=== PATIENT | male | born 1935 | race Caucasian/White ===

== ENCOUNTER 2018-01-11 11:35 | Inpatient (IN) | payer MEDICARE, MEDICAID ==
--- NOTE | 2018-01-11 11:41 | ED PDOC ---
Arrival/HPI - General Historian: Patient, EMS - Critical Care Critical Care Minutes: 30 minutes - History of Present Illness Time/Duration: Prior to Arrival - General Time Seen by Provider: 01/11/18 11:38 - Critical Care Narrative Critical Care (Text): 01/11/18 12:07 pt was found to be in SVT @150 on ekg; dr. tyson at bedside. pt placed on monitor. adenosine given IVP. HR improved. EKG repeated; NSR at 79b/m no st elevations reviewed with prior EKG on 07/20/15. (Lu Rosario) - History of Present Illness Narrative History of Present Illness (Text): 01/11/18 11:38 82yr old male presents today with AMS. Per EMS, pt was standing outside his house and appeared to be altered. pt denies cp or sob. denies abdominal pain. denies urinary symptoms. pt denies fevers. pt denies trauma or injury. pt denies any complaints. (Lu Rosario) Past Medical History - Provider Review Nursing Documentation Reviewed: Yes - Travel History Have you recently traveled outside [place] w/in the past 3 mons?: No - Tetanus Immunization Tetanus Immunization: Unknown - Psychiatric Hx Substance Use: No Family/Social History - Physician Review Nursing Documentation Reviewed: Yes Family/Social History: Unknown Family HX Smoking Status: Never Smoked Hx Alcohol Use: No Hx Substance Use: No Allergies/Home Meds Allergies/Adverse Reactions: Allergies No Known Allergies Allergy (Verified 07/20/15 08:41) Home Medications: Home Meds Medication Instructions Recorded Confirmed Unobtainable 07/20/15 01/11/18 Review of Systems - Review of Systems Constitutional: absent: Fatigue, Fevers Respiratory: absent: SOB, Cough Cardiovascular: absent: Chest Pain, Palpitations Gastrointestinal: absent: Vomiting Genitourinary Male: absent: Dysuria, Frequency Musculoskeletal: absent: Arthralgias, Back Pain Skin: absent: Rash, Pruritis Neurological: absent: Headache, Dizziness Psychiatric: absent: Anxiety, Depression, Suicidal Ideation Physical Exam Vital Signs Reviewed: Yes Temperature: Afebrile Blood Pressure: Normal Pulse: Tachycardic Respiratory Rate: Normal Appearance: Positive for: Well-Appearing, Non-Toxic, Comfortable Pain Distress: None Mental Status: Positive for: other (alert and oriented x 2 (person and place)) - Systems Exam Head: Present: Atraumatic Pupils: Present: PERRL Extroacular Muscles: Present: EOMI Mouth: Present: Moist Mucous Membranes Neck: Present: Normal Range of Motion Respiratory/Chest: Present: Clear to Auscultation Cardiovascular: Present: Peripheal Pulses Present, Tachycardic. No: Murmurs, Rub, Gallop, Muffled Abdomen: No: Tenderness, Distention, Rebound, Guarding Back: Present: Normal Inspection Upper Extremity: Present: Normal ROM Lower Extremity: Present: Normal ROM Skin: Present: Warm, Dry, Normal Color Psychiatric: Present: Alert Vital Signs Temp Pulse Resp BP Pulse Ox 01/11/18 15:10 64 22 157/90 H 100 01/11/18 13:28 64 25 H 91/30 L 96 01/11/18 12:28 74 16 118/80 100 01/11/18 11:38 98.6 F 82 18 112/56 L 98 Medical Decision Making Reassessment Condition: Re-examined, Improved ED Course and Treatment: 01/11/18 11:42 82-year-old male presents with altered mental status alert and oriented 2 no signs of trauma or injury. EKG: SVT at 149 b/m normal axis. dr. tyson called to bedside for SVT. 6mg of adenosine given IVP for SVT. repeat EKG NSR at 79b/m no st elevations reviewed with prior EKG on 07/20/15. pt reassessment; non toxic; no distress. Chest x-ray: no active disease; read by the radiologist. CBC: wnl CMP: wnl trop; 0.[address]: FINDINGS: HEMORRHAGE: No intracranial hemorrhage. BRAIN: No mass effect or edema. Mild atrophy. No acute findings VENTRICLES: Unremarkable. No hydrocephalus. CALVARIUM: Unremarkable. PARANASAL SINUSES: Unremarkable as visualized. No significant inflammatory changes. MASTOID AIR CELLS: Unremarkable as visualized. No inflammatory changes. OTHER FINDINGS: None. IMPRESSION: No acute findings 01/11/18 13:06 pt reassessment; pt non toxic well appearing; no distress. resting comfortably. case discussed with dr. tamayo; accepts admission impression; SVT, AMS admit to tele. (Lu Rosario) 01/11/18 11: 82 male presents with AMS and found to be in SVT at 150's. I went immediately to bedside when informed by nurse. Gave patient Adenosine 6mg IV and HR improved to 50s and then stabilized at (Brian Tyson) - Lab Interpretations Lab Results: 01/11/18 12:00 01/11/18 12:00 Lab Results 01/11/18 12:00: WBC 8.3, RBC 4.41, Hgb 13.8 L, Hct 41.1 L, MCV 93.2, MCH 31.3, MCHC 33.6, RDW 13.3, Plt Count 372, MPV 9.3, Gran % 82.1 H, Lymph % (Auto) 11.5 L, [place] % (Auto) 6.2 H, Eos % (Auto) 0.1 L, Baso % (Auto) 0.1, Gran # 6.79 H, Lymph # (Auto) 1.0 L, [place] # (Auto) 0.5, Eos # (Auto) 0.0, Baso # (Auto) 0.01 01/11/18 12:00: Sodium 144, Potassium 4.7, Chloride 106, Carbon Dioxide 25, Anion Gap 17, BUN 13, Creatinine 1.3, Est GFR ( Amer) > 60, Est GFR (Non- Af Amer) 53, Random Glucose 118 H, Calcium 9.0, Total Bilirubin 0.8, AST 23, ALT 22, Alkaline Phosphatase 89, Lactate Dehydrogenase 464, Total Creatine Kinase 102, Troponin I 0.02 D, Total Protein 6.8, Albumin 4.1, Globulin 2.7, Albumin/Globulin Ratio 1.5 - RAD Interpretation Radiology Orders: 01/11/18 11:53 HEAD W/O CONTRAST [CT] Stat CHEST PORTABLE [RAD] Stat - Medication Orders Current Medication Orders: Amlodipine Besylate (Norvasc) 5 mg PO DAILY GARCÍA Enoxaparin Sodium (Lovenox) 40 mg SC DAILY GARCÍA PRN Reason: Protocol Metoprolol Tartrate (Lopressor) 25 mg PO BRKDIN GARCÍA Pantoprazole Sodium (Protonix Ec Tab) 40 mg PO 0600 GARCÍA Discontinued Medications Adenosine (Adenosine 6 Mg/2 Ml Inj) 6 mg IVP STAT STA Stop: 01/11/18 11:52 Last Admin: 01/11/18 12:07 Dose: 6 mg IVP Administration Document 01/11/18 12:07 MR (Rec: 01/11/18 12:07 MR [id number]) Charges for Administration # of IVP Administrations 1 Aspirin (Aspirin) 325 mg PO STAT STA Stop: 01/11/18 13:06 Last Admin: 01/11/18 15:23 Dose: 325 mg Metoprolol Tartrate (Lopressor) 25 mg PO BRKDIN GARCÍA Disposition/Present on Arrival - Present on Arrival Any Indicators Present on Arrival: No History of DVT/PE: No History of Uncontrolled Diabetes: No Urinary Catheter: No History Surgical Site Infection Following: None - Disposition Have Diagnosis and Disposition been Completed?: Yes Disposition Time: 13:05 Patient Plan: Observation - Disposition Diagnosis: SVT (supraventricular tachycardia), Altered mental status Disposition: HOSPITALIZED Patient Problems: Current Active Problems Problem Status Onset Altered mental status Acute SVT (supraventricular tachycardia) Acute Condition: FAIR
[2018-01-11 12:20] LABS: BASO # 0.01 K/mm3 (0.0-2.0); BASO % 0.1 % (0.0-3.0); EOS % 0.1 % (1.5-5.0); GRAN # 6.79 (1.4-6.5); GRAN % 82.1 % (50.0-68.0); HEMOGLOBIN 13.8 g/dL (14.0-18.0); LYMPH % 11.5 % (22.0-35.0); MEAN CELL VOLUME 93.2 fl (80.0-105.0); MEAN CORPUSCULAR HEMOGLOBIN 31.3 pg (25.0-35.0); MEAN CORPUSCULAR HGB CONC 33.6 g/dl (31.0-37.0); MEAN PLATELET VOLUME 9.3 fl (7.0-11.0); MONO # 0.5 (0.1-0.6); MONO % 6.2 % (1.0-6.0); RBC 4.41 10^6/uL (3.5-6.1); RED CELL DISTRIBUTION WIDTH 13.3 % (11.5-14.5); WHITE BLOOD COUNT 8.3 10^3/ul (4.5-11.0)
[2018-01-11 12:27] LABS: ALB/GLOB RATIO 1.5 (1.1-1.8); ALBUMIN 4.1 g/dL (3.0-4.8); ALT/SGPT 22 U/L (7-56); AST/SGOT 23 U/L (17-59); BLOOD UREA NITROGEN 13 mg/dL (7-21); GFR AFRICAN-AMERICAN > 60; GFR NON-AFRICAN AMERICAN 53
--- NOTE | 2018-01-11 12:32 | RAD ---
Date of service: 01/11/2018 HISTORY: chest pain COMPARISON: 07/20/2015 FINDINGS: LUNGS: No active pulmonary disease. PLEURA: No significant pleural effusion identified, no pneumothorax apparent. CARDIOVASCULAR: Normal. OSSEOUS STRUCTURES: No significant abnormalities. VISUALIZED UPPER ABDOMEN: Normal. OTHER FINDINGS: None. IMPRESSION: No active disease.
[2018-01-11 12:39] LABS: TROPONIN I 0.02 ng/mL
--- NOTE | 2018-01-11 12:40 | CT ---
Date of service: 01/11/2018 PROCEDURE: CT HEAD WITHOUT CONTRAST. HISTORY: AMS COMPARISON: 07/20/2015 TECHNIQUE: Axial computed tomography images were obtained through the head/brain without intravenous contrast. Radiation dose: Total exam DLP = 928 mGy-cm. This CT exam was performed using one or more of the following dose reduction techniques: Automated exposure control, adjustment of the mA and/or kV according to patient size, and/or use of iterative reconstruction technique. FINDINGS: HEMORRHAGE: No intracranial hemorrhage. BRAIN: No mass effect or edema. Mild atrophy. No acute findings VENTRICLES: Unremarkable. No hydrocephalus. CALVARIUM: Unremarkable. PARANASAL SINUSES: Unremarkable as visualized. No significant inflammatory changes. MASTOID AIR CELLS: Unremarkable as visualized. No inflammatory changes. OTHER FINDINGS: None. IMPRESSION: No acute findings
--- NOTE | 2018-01-11 14:52 | CP.PCM.HP ---
<Nelda Sorensen - Last Filed: 01/11/18 18:55> History of Present Illness - History of Present Illness History of Present Illness: Nelda Sorensen D.O. PGY1 - Medicine History and Physical Report Patient is a 82 year old [place]oan male with unknown past medical history and no out-patient follow-up who was found in front of his apartment building, said to be confused and unable to walk. Per patient, he woke up feeling "sick" and described this as feeling generally "not well everywhere." Patient reports that he attempted to walk to a restaurant for food but could not walk more than 3 steps without feeling too weak, and would have to sit down. Patient reports that he is usually able to walk 2 miles at a time, and usually does not have any problems. Patient says this same episode happened before 30 years ago. ROS is otherwise unremarkable for numbness or tingling in lower extremities, lower extremity edema, abdominal pain, denies shortness of breath, chest pain, palpitations, nausea, vomiting, and/or dizziness. Patient reports that he lives at home alone, and that his sister comes to visit him once a week on Sundays. Patient agreed to notify his next-of-kin, and his sister was called for additional history. Sister says he is very independent and says that he walks all the time. She says he is able to walk to faith from the bus stop, which is 1-2 miles away. She says she spoke to him this past Sunday, seemed very calm, which is unusual for his personality because he is usually very excited to talk to her. Per sister, they were disconnected for a long time, but now she is happy that he has a place of his own. Per sister, he is a former alcoholic about 45 years ago. Past medical history: Patient denies Surgical history: Unknown Allergies: Patient denies Home medications: Patient denies Family history: Both parents are . Patient says his father had a heart attack at age 58 survived, but past away soon after. Mother lived until she was 91, and was in good health until she had a fall. Social history: - Living: patient says he has 5 sisters. Only 1 sister is taking care of him and helps him financially. - Tobacco: patient rolls his own tobacco and has smoked for 20 years - ETOH: patient denies - Occupation: unemployed PMD: none Present on Admission - Present on Admission Any Indicators Present on Admission: No History of DVT/PE: No History of Uncontrolled Diabetes: No Urinary Catheter: No Decubitus Ulcer Present: No Review of Systems - Review of Systems All systems: reviewed and no additional remarkable complaints except - Constitutional Constitutional: As Per HPI - EENT Eyes: As Per HPI Ears: As Per HPI Nose/Mouth/Throat: As Per HPI - Cardiovascular Cardiovascular: As Per HPI - Respiratory Respiratory: As Per HPI - Gastrointestinal Gastrointestinal: As Per HPI - Genitourinary Genitourinary: absent: Change in Urinary Stream, Difficulty Urinating, Dysuria, Flank Pain, Hematuria, Pyuria, Urinary Incontinence, Urinary Frequency, Urinary Hesitance, Urinary Urgency - Musculoskeletal Musculoskeletal: As Per HPI - Integumentary Integumentary: As Per HPI - Neurological Neurological: As Per HPI - Psychiatric Psychiatric: As Per HPI - Endocrine Endocrine: As Per HPI - Hematologic/Lymphatic Hematologic: As Per HPI Past Patient History - Tetanus Immunizations Tetanus Immunization: Unknown - Past Social History Smoking Status: Heavy Smoker > 10 Cigarettes Daily (rolls own tobacco with dried quijano > 20 years) Chewing Tobacco Use: No Cigar Use: No Occupation: unemployeed Alcohol: Other (history of heavy alcohol consumption) Home Situation {Lives}: Alone - CARDIAC Hx Cardia Arrhythmia: Yes (30 years ago ) - PULMONARY Hx Respiratory Disorders: No - NEUROLOGICAL Hx Neurological Disorder: No - HEENT Hx HEENT Problems: No - RENAL Hx Chronic Kidney Disease: No - ENDOCRINE/METABOLIC Hx Endocrine Disorders: No - HEMATOLOGICAL/ONCOLOGICAL Hx Blood Disorders: No - INTEGUMENTARY Hx Dermatological Problems: No - MUSCULOSKELETAL/RHEUMATOLOGICAL Hx Musculoskeletal Disorders: No - GASTROINTESTINAL Hx Gastrointestinal Disorders: No - GENITOURINARY/GYNECOLOGICAL Hx Genitourinary Disorders: No - PSYCHIATRIC Hx Psychophysiologic Disorder: No Hx Substance Use: No - SURGICAL HISTORY Hx Surgeries: No Meds Allergies/Adverse Reactions: Allergies Allergy/AdvReac Type Severity Reaction Status Date / Time No Known Allergies Allergy Verified 07/20/15 08:41 Physical Exam - Constitutional Appears: Well, Non-toxic, No Acute Distress, Confused (Alert and oriented to name and city only ) - Head Exam Head Exam: ATRAUMATIC, NORMOCEPHALIC - Eye Exam Eye Exam: Normal appearance, PERRL. absent: Conjunctival injection Pupil Exam: NORMAL ACCOMODATION - ENT Exam ENT Exam: Mucous Membranes Moist, Normal Exam - Neck Exam Neck exam: Positive for: Normal Inspection. Negative for: Lymphadenopathy, Tenderness - Respiratory Exam Respiratory Exam: Clear to Auscultation Bilateral, NORMAL BREATHING PATTERN. absent: Accessory Muscle Use, Chest Wall Tenderness, Decreased Breath Sounds, Prolonged Expiratory Phase, Rales, Wheezes, Stridor - Cardiovascular Exam Cardiovascular Exam: REGULAR RHYTHM (79 beats per minute ). absent: Bradycardia , Tachycardia, Clicks, Diastolic murmur, Gallop, Irregular Rhythm, JVD, Rubs - GI/Abdominal Exam GI & Abdominal Exam: Normal Bowel Sounds, Soft. absent: Tenderness - Extremities Exam Extremities exam: Positive for: full ROM, normal inspection. Negative for: pedal edema - Back Exam Back exam: FULL ROM, NORMAL INSPECTION. absent: muscle spasm, paraspinal tenderness, rash noted - Neurological Exam Neurological exam: Alert, CN II-XII Intact, Normal Gait, Reflexes Normal Additional comments: muscle strength in lower extremities 5/5 bilaterally - Psychiatric Exam Psychiatric exam: Normal Affect, Normal Mood - Skin Skin Exam: Dry, Intact, Normal Color, Warm Results - Vital Signs Recent Vital Signs: Last Vital Signs Temp 98.6 F 01/11/18 11:38 Pulse 82 01/11/18 11:38 Resp 18 01/11/18 11:38 BP 112/56 L 01/11/18 11:38 Pulse Ox 98 01/11/18 11:38 - Labs Result Diagrams: 01/11/18 12:00 01/11/18 12:00 Assessment & Plan - Assessment and Plan (Free Text) Assessment: This is an 82 year old male with unknown past medical history who was found in front of his apartment building confused, unable to walk, and was brought in by emergency medical services to [facility]. Patient was found to have SVT on EKG performed in ED with heart rate of >140bmp. This was resolved with 1 dose Adenosine IVP, aspirin 325mg and patient was subsequently admitted for further evaluation for paroxysmal SVT and cardiac workup. SVT, paroxysmal - Repeat EKG 01/11: NSR 79 bpm - Repeat EKG ordered for 01/12 AM - Patient admitted to telemetry - Cardiology consulted, will follow recommendations - Blood cultures pending - Urine Culture - Troponin I: 0.02. Serial troponins pending - Echo pending - CXR: showed no active disease, per report - CT head: showed no hydrocephalus, no intracranial hemorrhage, per report - Monitor vitals - Start on healthy heart diet Anemia - Hemoglobin 13.8, will monitor - Monitor with CBC series PPx: DVT, GI - Lovenox 40mg SC Daily GARCÍA - Protonix 40mg PO 0600 GARCÍA Patient was seen and case was discussed in detail with Attending Physician MD Nelda Morris D.O. PGY-1 Decision To Admit - Pt Status Changed To: Hospital Disposition Of: Inpatient Admission - Admit Certification Admit to Inpatient:: After my assessment, the patient will require hospitalization for at least two midnights. This is because of the severity of symptoms shown, intensity of services needed, and/or the medical risk in this patient being treated as an outpatient. - . Bed Request Type: Telemetry <Eloisa Mckeon - Last Filed: 01/13/18 13:36> Results - Vital Signs Recent Vital Signs: Last Vital Signs Temp 99.4 F 01/13/18 12:00 Pulse 56 L 01/13/18 12:00 Resp 18 01/13/18 12:00 BP 150/59 L 01/13/18 12:00 Pulse Ox 97 01/13/18 06:00 - Labs Result Diagrams: 01/13/18 06:00 01/13/18 06:00 Labs: Laboratory Results - last 24 hr 01/12/18 01/12/18 01/13/18 06:20 10:50 06:00 WBC 6.4 RBC 3.74 Hgb 11.5 L Hct 34.4 L MCV 92.0 MCH 30.7 MCHC 33.4 RDW 13.0 Plt Count 309 MPV 9.4 Gran % 76.0 H Lymph % (Auto) 13.[address] [place] % (Auto) 9.3 H Eos % (Auto) 0.9 L Baso % (Auto) 0.2 Gran # 4.88 Lymph # (Auto) 0.[address] [place] # (Auto) 0.6 Eos # (Auto) 0.1 Baso # (Auto) 0.01 Sodium Potassium Chloride Carbon Dioxide Anion Gap BUN Creatinine Est GFR ( Amer) Est GFR (Non-Af Amer) Random Glucose Hemoglobin A1c 4.5 Calcium Total Bilirubin AST ALT Alkaline Phosphatase Total Protein Albumin Globulin Albumin/Globulin Ratio Vitamin B12 235 L Folate 7.1 01/13/18 06:00 WBC RBC Hgb Hct MCV MCH MCHC RDW Plt Count MPV Gran % Lymph % (Auto) [place] % (Auto) Eos % (Auto) Baso % (Auto) Gran # Lymph # (Auto) [place] # (Auto) Eos # (Auto) Baso # (Auto) Sodium 140 Potassium 4.3 Chloride 106 Carbon Dioxide 26 Anion Gap 12 BUN 15 Creatinine 1.0 Est GFR ( Amer) > 60 Est GFR (Non-Af Amer) > 60 Random Glucose 88 Hemoglobin A1c Calcium 8.6 Total Bilirubin 0.9 AST 21 ALT 32 Alkaline Phosphatase 80 Total Protein 6.2 Albumin 3.6 Globulin 2.6 Albumin/Globulin Ratio 1.4 Vitamin B12 Folate Attending/Attestation - Attestation I have personally seen and examined this patient.: Yes I have fully participated in the care of the patient.: Yes I have reviewed all pertinent clinical information: Yes Notes (Text): 01/13/18 13:33 Attending note; Patient seen and examined with resident in ER. Patient is a 82 year old [place] male with unknown past medical history and no out-patient follow-up who was found in front of his apartment building, said to be confused and unable to walk. The patient was found to be in SVT. Got 1 dose of adenosine ER. Converted to normal sinus rhythm. Patient is alert and awake. Oriented to place. Some long-term memory intact. Poor short-term memory. Moving all extremities. Possible dementia. Admit to telemetry; monitor closely. Cardiac enzymes ordered. Cardiology evaluation requested. Echocardiogram ordered. Started on metoprolol for heart rate control and blood pressure control. Case discussed with patient's sister in detail. Patient is a previous history of alcohol abuse and smoking history. Patient currently lives alone. Unemployed. Patient needs close outpatient follow-up upon discharge.
[2018-01-11 15:32] LABS: PH,URINE 6.5 (4.7-8.0); URINE APPEARANCE SLIGHT-CLOUDY (CLEAR); URINE BILIRUBIN NEGATIVE (NEGATIVE); URINE BLOOD TRACE-LYSED (NEGATIVE); URINE COLOR YELLOW (YELLOW); URINE GLUCOSE (UA) NEGATIVE (NEGATIVE); URINE LEUKOCYTE ESTERASE NEGATIVE Leu/uL (NEGATIVE); URINE PROTEIN 100 mg/dL (<30 mg/dL); URINE UROBILINOGEN 0.2 E.U./dL (<1 E.U./dL)
[2018-01-11 15:38] LABS: URINE BACTERIA TRACE (NEG); URINE EPITHELIAL CELLS 0 - 2 /hpf (0-5); URINE HYALINE CAST 0 - 2 /hpf; URINE WBC 0 - 2 /hpf (0-6)
--- NOTE | 2018-01-11 17:31 | CARD ---
APPROVED REPORT Date of service: 01/11/2018 EKG Measurement Heart [id number] <Conclusion> Normal sinus rhythm Moderate voltage criteria for LVH, may be normal variant Anterior infarct, age undetermined Abnormal ECG
[2018-01-11 18:16] VITALS: BMI 22.4
[2018-01-11] MEDS ORDERED: Pneumococcal 23-Valent Vaccine IM ONE (18:17)
[2018-01-11 23:56] LABS: BARBITURATES, UR NEGATIVE (NEGATIVE); BENZODIAZEPINES, UR NEGATIVE (NEGATIVE); OPIATES, UR NEGATIVE (NEGATIVE); PHENCYCLIDINE, UR NEGATIVE (NEGATIVE)
[2018-01-12] MEDS: Pantoprazole 40 mg EC Tab PO SCH (06:16)
[2018-01-12 07:05] LABS: BASO # 0.01 K/mm3 (0.0-2.0); BASO % 0.1 % (0.0-3.0); EOS # 0.1 (0.0-0.7); GRAN # 4.82 (1.4-6.5); GRAN % 71.3 % (50.0-68.0); HEMOGLOBIN 11.7 g/dL (14.0-18.0); LYMPH # 1.5 (1.2-3.4); LYMPH % 21.4 % (22.0-35.0); MEAN CELL VOLUME 92.7 fl (80.0-105.0); MEAN CORPUSCULAR HEMOGLOBIN 30.6 pg (25.0-35.0); MEAN CORPUSCULAR HGB CONC 33.1 g/dl (31.0-37.0); MEAN PLATELET VOLUME 9.4 fl (7.0-11.0); MONO # 0.4 (0.1-0.6); MONO % 6.2 % (1.0-6.0); RBC 3.82 10^6/uL (3.5-6.1); RED CELL DISTRIBUTION WIDTH 13.2 % (11.5-14.5); WHITE BLOOD COUNT 6.8 10^3/ul (4.5-11.0)
[2018-01-12 07:18] LABS: ALB/GLOB RATIO 1.5 (1.1-1.8); ALBUMIN 3.8 g/dL (3.0-4.8); ALT/SGPT 21 U/L (7-56); AST/SGOT 24 U/L (17-59); BLOOD UREA NITROGEN 15 mg/dL (7-21); CALCIUM 8.7 mg/dL (8.4-10.5); GFR AFRICAN-AMERICAN > 60; GFR NON-AFRICAN AMERICAN > 60; HDL CHOLESTEROL 35 mg/dL (29-60)
[2018-01-12 07:28] LABS: LDL CHOLESTEROL 72 mg/dL (0-129)
--- NOTE | 2018-01-12 08:13 | CON ---
DATE: 01/12/2018 REQUESTING PHYSICIAN: Dr. Mckeon. REASON FOR CONSULTATION: SVT. HISTORY: This is an 82-year-old man with a somewhat limited history due to altered mental status. He was brought to the Emergency Room by EMS yesterday with some confusion. He was noted to be tachycardic in the Emergency Room. He was found to be in supraventricular tachycardia, was treated with IV adenosine with improvement in his rhythm to sinus rhythm. He is currently on Telemetry and is comfortable. He appears somewhat confused. He knows his name, but is uncertain as to where he is. He apparently was confused and unable to walk yesterday. He has emigrated from [place]. He reportedly lives alone at [facility]. History is somewhat limited. There is no clear history of hypertension. He smokes some form of herbal cigarettes. He has no history of diabetes. There is a family history of premature heart disease. REVIEW OF SYSTEMS: The 10-point review of systems is fairly limited. FAMILY HISTORY: Father of myocardial infarction at the age of 58. Mother lives until 91. PHYSICAL EXAMINATION: GENERAL: He is an elderly man who appears comfortable at rest. VITAL SIGNS: His blood pressure is 166/80 with a pulse of 60, in sinus; respirations are 16. He is afebrile. HEENT: Normocephalic, atraumatic. NECK: Supple. No JVD noted. CHEST: A few scattered rhonchi heard. HEART: PMI displaced laterally with soft systolic murmur present at left sternal border. ABDOMEN: Soft, nontender. Normoactive bowel sounds. EXTREMITIES: No clubbing, cyanosis, edema. SKIN: Warm and dry. PSYCHIATRIC: Somewhat flat affect, apparently was somewhat belligerent through the night. NEUROLOGIC: Oriented to person only. No gross motor or sensory deficit seen. DIAGNOSTIC DATA: White count is 8.3, hemoglobin and hematocrit 13.8 and 41.1 with platelet count of 372,000, potassium 4.7, BUN and creatinine 13 and 1.3, glucose 118. Three sets of cardiac enzymes were negative. BNP is 1230. Toxicology screen was negative. Chest x-ray reveals normal cardiac silhouette with clear lung anderson. Initial electrocardiogram reveals SVT at 150 beats per minute. Followup echocardiogram reveals a sinus rhythm with voltage criteria for LVH, prior anterior myocardial infarction pattern cannot be excluded. IMPRESSION: 1. Paroxysmal supraventricular tachycardia, successfully converted to sinus rhythm with adenosine use. 2. Apparent hypertension. 3. Confusional state, etiology unclear. 4. Abnormal electrocardiogram. RECOMMENDATIONS: Continued Telemetry monitoring advised. Oral beta-alicia therapy has been instituted. Clonidine will be added as needed for elevated blood pressure. An echocardiogram is pending. Neurologic evaluation is advised. We will continue to follow any further recommendations as needed. Thank you for this consultation. Neville Fam MD [facility] # [id number] MTDD
[2018-01-12] MEDS: Enoxaparin 40 mg Syringe SC SCH (10:41)
--- NOTE | 2018-01-12 11:16 | CP.PCM.PN ---
<Guillermo Zavaleta - Last Filed: 01/12/18 16:06> Subjective - Date & Time of Evaluation Date of Evaluation: 01/12/18 Time of Evaluation: 11:12 - Subjective Subjective: Guillermo Zavaleta D.O PGY-1, Internal Medicine progress note for Dr. Mckeon Patient was examined at bedside, no acute overnight events. Patient offers no new complaints at this time. Denies fevers, chills, chest pain, shortness of breath, abdominal pain, N/V/D. Objective - Vital Signs/Intake and Output Vital Signs (last 24 hours): Temp Pulse Resp BP Pulse Ox 97.4 F L 61 20 139/90 98 01/12/18 06:00 01/12/18 06:00 01/12/18 06:00 01/12/18 10:41 01/12/18 06:00 Intake and Output: 01/12/18 01/12/18 06:59 18:59 Intake Total 360 Balance 360 - Medications Medications: Current Medications Amlodipine Besylate (Norvasc) 5 mg PO DAILY [facility] Last Admin: 01/12/18 10:41 Dose: 5 mg Aspirin (Ecotrin) 81 mg PO DAILY [facility] Last Admin: 01/12/18 10:41 Dose: 81 mg Clonidine HCl (Catapres) 0.1 mg PO Q6H PRN PRN Reason: Systolic Blood Pressure > 160 Enoxaparin Sodium (Lovenox) 40 mg SC DAILY [facility] PRN Reason: Protocol Last Admin: 01/12/18 10:41 Dose: 40 mg Metoprolol Tartrate (Lopressor) 50 mg PO BID [facility] Last Admin: 01/12/18 10:01 Dose: Not Given Pantoprazole Sodium (Protonix Ec Tab) 40 mg PO 0600 [facility] Last Admin: 01/12/18 06:16 Dose: 40 mg - Labs Labs: 01/12/18 06:20 01/12/18 06:20 - Constitutional Appears: Well, No Acute Distress - Head Exam Head Exam: ATRAUMATIC, NORMAL INSPECTION - Eye Exam Eye Exam: Normal appearance - ENT Exam ENT Exam: Mucous Membranes Moist - Respiratory Exam Respiratory Exam: Clear to Ausculation Bilateral - Cardiovascular Exam Cardiovascular Exam: REGULAR RHYTHM, +S1 - GI/Abdominal Exam GI & Abdominal Exam: Soft, Normal Bowel Sounds. absent: Tenderness - Extremities Exam Extremities Exam: absent: Calf Tenderness, Pedal Edema - Neurological Exam Neurological Exam: Alert, Awake. absent: Oriented x3 (AAO x 1) - Psychiatric Exam Psychiatric exam: Normal Affect, Normal Mood - Skin Skin Exam: Dry, Normal Color, Warm Assessment and Plan - Assessment and Plan (Free Text) Assessment: Patient is an 82 year old male with unknown past medical history who was found in front of his apartment building confused, unable to walk, and was brought in by EMS to the ED for further evaluation for paroxysmal SVT and cardiac workup. Plan: SVT, paroxysmal - EKG: NSR @ 69, no ST elevations or depressions - Patient admitted to telemetry - Cardiology consulted, will follow recommendations - Troponin I: 0.02, 0.05, 0.04 - Echo pending - CXR: showed no active disease - CT head: showed no hydrocephalus, no intracranial hemorrhage - Healthy heart diet Altered mental status - Unsure if patient is altered at baseline vs dementia - AAO x 1 - Neurology consulted - No signs of an infection - Blood cultures pending - Urine Culture Anemia - Hemoglobin 11.7 - Continue to monitor with CBC series PPx: DVT, GI - Lovenox 40mg SC Daily [facility] - Protonix 40mg PO 0600 [facility] Patient was seen and case was discussed in detail with Attending Physician Dr. Mckeon <Eloisa Mckeon - Last Filed: 01/13/18 13:37> Objective - Vital Signs/Intake and Output Vital Signs (last 24 hours): Temp Pulse Resp BP Pulse Ox 99.4 F 56 L 18 150/59 L 97 01/13/18 12:00 01/13/18 12:00 01/13/18 12:00 01/13/18 12:00 01/13/18 06:00 - Medications Medications: Current Medications Aspirin (Ecotrin) 81 mg PO DAILY [facility] Last Admin: 01/13/18 10:10 Dose: 81 mg Clonidine HCl (Catapres) 0.1 mg PO Q6H PRN PRN Reason: Systolic Blood Pressure > 160 Last Admin: 01/13/18 06:40 Dose: 0.1 mg Enoxaparin Sodium (Lovenox) 40 mg SC DAILY [facility] PRN Reason: Protocol Last Admin: 01/13/18 10:11 Dose: 40 mg Metoprolol Tartrate (Lopressor) 50 mg PO BID [facility] Last Admin: 01/13/18 10:10 Dose: 50 mg Pantoprazole Sodium (Protonix Ec Tab) 40 mg PO 0600 [facility] Last Admin: 01/13/18 06:17 Dose: 40 mg Quetiapine Fumarate (Seroquel) 25 mg PO HS [facility] PRN Reason: Protocol Last Admin: 01/12/18 23:30 Dose: Not Given - Labs Labs: 01/13/18 06:00 01/13/18 06:00 Attending/Attestation - Attestation I have personally seen and examined this patient.: Yes I have fully participated in the care of the patient.: Yes I have reviewed all pertinent clinical information, including history, physical exam and plan: Yes Notes (Text): 01/13/18 13:36 Attending note; Patient seen and examined with residen. Patient is a 82 year old [place] male with unknown past medical history and no out-patient follow-up who was found in front of his apartment building, said to be confused and unable to walk. The patient was found to be in SVT. Got 1 dose of adenosine ER. Converted to normal sinus rhythm. Patient had recurrent episode of tachycardia. Resolved with by mouth metoprolol. Cardiology evaluation appreciated. Cardiac enzymes 3 negative. Patient is alert and awake. Oriented to place. Echocardiogram ordered. Started on metoprolol for heart rate control and blood pressure control. Case discussed with patient's sister in detail. Patient is a previous history of alcohol abuse and smoking history. Patient currently lives alone. Unemployed. Patient needs close outpatient follow-up upon discharge.
--- NOTE | 2018-01-12 16:40 | PCM.FALL ---
Post Fall Progress Note - Post Fall Fall Date: 01/12/18 Fall Time: 16:23 - Post Fall Exam Vital Sign: Temp Pulse Resp BP Pulse Ox 97.6 F 112 H 20 135/81 98 01/12/18 11:44 01/12/18 14:04 01/12/18 11:44 01/12/18 11:44 01/12/18 06:00 Skull Exam: Negative for: Scalp wound, Scalp hematoma, Scalp depression, Ridge in skull Eye Exam: Positive for: Pupils equal, Pupils reactive Ear Exam: Negative for: Discharge, Bleeding Nose Exam: Negative for: Discharge, Bleeding Skin Exam: Negative for: Colour, Lacerations, Grazes, Bruising Mouth Exam: Negative for: Tongue bitten, Teeth dislodge Neck Exam: Negative for: Tenderness, Tingling, Weakness Spinal Exam: Negative for: Tenderness, Tingling, Weakness Chest Exam: Negative for: Difficulty breathing, Tenderness in collar bones, Tenderness in ribs Abdomen Exam: Negative for: Tenderness Pelvic Exam: Negative for: Tenderness, Hematuria Arm Exam: Negative for: Deformity, Alteration in range of movement Leg Exam: Negative for: Deformity, Alteration in range of movement Impression/Plan: 82 year old male with unknown PMH admitted for PVC's monitoring. Code star was called. Upon arrival, the patient was standing with help of nurses. According to the nurses, the patient attempted to walk to the bathroom and then fell on his buttocks. According to the [employer] Video Monitor, the patient did not hit his head. Patient was examined and noted to be able to move all extremities, normal ROM, normal neurological exam, and no acute changes in mental status. Plan: - High fall risk precautions ordered. - Continue [employer] Monitor - Avoid sedatives - one -to -one ordered for fall risk. - If any acute changes in mental status develop, patient should recieve stat CT scan of head PGY-1 Guillermo Zavaleta
--- NOTE | 2018-01-12 17:16 | CP.PCM.CON ---
History of Present Illness - History of Present Illness History of Present Illness: 82 yr old male with alcohol use for many years, who has dementia, appears to have severely compromised mentation, and is agitated. Past Patient History - Tetanus Immunizations Tetanus Immunization: Unknown - Past Social History Smoking Status: Heavy Smoker > 10 Cigarettes Daily (rolls own tobacco with dried quijano > 20 years) Chewing Tobacco Use: No Cigar Use: No Occupation: unemployeed Alcohol: Other (history of heavy alcohol consumption) Home Situation {Lives}: Alone - CARDIAC Hx Cardia Arrhythmia: Yes (30 years ago ) - PULMONARY Hx Respiratory Disorders: No - NEUROLOGICAL Hx Neurological Disorder: No - HEENT Hx HEENT Problems: No - RENAL Hx Chronic Kidney Disease: No - ENDOCRINE/METABOLIC Hx Endocrine Disorders: No - HEMATOLOGICAL/ONCOLOGICAL Hx Blood Disorders: No - INTEGUMENTARY Hx Dermatological Problems: No - MUSCULOSKELETAL/RHEUMATOLOGICAL Hx Musculoskeletal Disorders: No - GASTROINTESTINAL Hx Gastrointestinal Disorders: No - GENITOURINARY/GYNECOLOGICAL Hx Genitourinary Disorders: No - PSYCHIATRIC Hx Psychophysiologic Disorder: No Hx Substance Use: No - SURGICAL HISTORY Hx Surgeries: No Meds Allergies/Adverse Reactions: Allergies Allergy/AdvReac Type Severity Reaction Status Date / Time No Known Allergies Allergy Verified 07/20/15 08:41 - Medications Medications: Current Medications Amlodipine Besylate (Norvasc) 5 mg PO DAILY [facility] Last Admin: 01/12/18 10:41 Dose: 5 mg Aspirin (Ecotrin) 81 mg PO DAILY [facility] Last Admin: 01/12/18 10:41 Dose: 81 mg Clonidine HCl (Catapres) 0.1 mg PO Q6H PRN PRN Reason: Systolic Blood Pressure > 160 Enoxaparin Sodium (Lovenox) 40 mg SC DAILY [facility] PRN Reason: Protocol Last Admin: 01/12/18 10:41 Dose: 40 mg Lorazepam (Ativan) 1 mg IVP Q4H PRN; Protocol PRN Reason: Agitation Metoprolol Tartrate (Lopressor) 50 mg PO BID [facility] Last Admin: 01/12/18 10:01 Dose: Not Given Pantoprazole Sodium (Protonix Ec Tab) 40 mg PO 0600 [facility] Last Admin: 01/12/18 06:16 Dose: 40 mg Results - Vital Signs Recent Vital Signs: Last Vital Signs Temp 97.6 F 01/12/18 11:44 Pulse 112 H 01/12/18 14:04 Resp 20 01/12/18 11:44 BP 135/81 01/12/18 11:44 Pulse Ox 98 01/12/18 06:00 - Labs Result Diagrams: 01/13/18 06:00 01/13/18 06:00 Labs: Laboratory Results - last 24 hr 01/11/18 01/11/18 01/12/18 18:45 23:05 00:40 WBC RBC Hgb Hct MCV MCH MCHC RDW Plt Count MPV Gran % Lymph % (Auto) [place] % (Auto) Eos % (Auto) Baso % (Auto) Gran # Lymph # (Auto) [place] # (Auto) Eos # (Auto) Baso # (Auto) Sodium Potassium Chloride Carbon Dioxide Anion Gap BUN Creatinine Est GFR ( Amer) Est GFR (Non-Af Amer) Random Glucose Calcium Total Bilirubin AST ALT Alkaline Phosphatase Troponin I 0.05 D 0.04 Total Protein Albumin Globulin Albumin/Globulin Ratio Triglycerides Cholesterol LDL Cholesterol Direct HDL Cholesterol TSH 3rd Generation Urine Opiates Screen Negative Urine Methadone Screen Negative Ur Barbiturates Screen Negative Ur Phencyclidine Scrn Negative Ur Amphetamines Screen Negative U Benzodiazepines Scrn Negative U Oth Cocaine Metabols Negative U Cannabinoids Screen Negative 01/12/18 01/12/18 01/12/18 06:20 06:20 06:20 WBC 6.8 RBC 3.82 Hgb 11.7 L D Hct 35.4 L MCV 92.7 MCH 30.6 MCHC 33.1 RDW 13.2 Plt Count 308 MPV 9.4 Gran % 71.3 H Lymph % (Auto) 21.4 L [place] % (Auto) 6.2 H Eos % (Auto) 1.0 L Baso % (Auto) 0.1 Gran # 4.82 Lymph # (Auto) 1.5 [place] # (Auto) 0.4 Eos # (Auto) 0.1 Baso # (Auto) 0.01 Sodium 142 Potassium 4.4 Chloride 106 Carbon Dioxide 25 Anion Gap 16 BUN 15 Creatinine 0.9 Est GFR ( Amer) > 60 Est GFR (Non-Af Amer) > 60 Random Glucose 85 Calcium 8.7 Total Bilirubin 1.0 AST 24 ALT 21 Alkaline Phosphatase 78 Troponin I Total Protein 6.4 Albumin 3.8 Globulin 2.6 Albumin/Globulin Ratio 1.5 Triglycerides 104 Cholesterol 132 LDL Cholesterol Direct 72 HDL Cholesterol 35 TSH 3rd Generation 1.69 Urine Opiates Screen Urine Methadone Screen Ur Barbiturates Screen Ur Phencyclidine Scrn Ur Amphetamines Screen U Benzodiazepines Scrn U Oth Cocaine Metabols U Cannabinoids Screen
[2018-01-12 18:14] LABS: FOLATE 7.1 ng/mL
--- NOTE | 2018-01-12 20:57 | CARD ---
APPROVED REPORT Date of service: 01/12/2018 EKG Measurement Heart [id number] <Conclusion> Supraventricular tachycardia Incomplete right bundle branch block Minimal voltage criteria for LVH, may be normal variant Anteroseptal infarct, age undetermined Abnormal ECG
--- NOTE | 2018-01-12 20:58 | CARD ---
APPROVED REPORT Date of service: 01/12/2018 EKG Measurement Heart [id number] <Conclusion> Normal sinus rhythm Minimal voltage criteria for LVH, may be normal variant Anterior infarct, age undetermined Abnormal ECG
[2018-01-13] MEDS: Pantoprazole 40 mg EC Tab PO SCH (06:17)
[2018-01-13 06:42] LABS: BASO # 0.01 K/mm3 (0.0-2.0); BASO % 0.2 % (0.0-3.0); EOS # 0.1 (0.0-0.7); EOS % 0.9 % (1.5-5.0); GRAN # 4.88 (1.4-6.5); HEMOGLOBIN 11.5 g/dL (14.0-18.0); LYMPH # 0.9 (1.2-3.4); LYMPH % 13.6 % (22.0-35.0); MEAN CORPUSCULAR HEMOGLOBIN 30.7 pg (25.0-35.0); MEAN CORPUSCULAR HGB CONC 33.4 g/dl (31.0-37.0); MEAN PLATELET VOLUME 9.4 fl (7.0-11.0); MONO # 0.6 (0.1-0.6); MONO % 9.3 % (1.0-6.0); RBC 3.74 10^6/uL (3.5-6.1); WHITE BLOOD COUNT 6.4 10^3/ul (4.5-11.0)
[2018-01-13 07:09] LABS: ALB/GLOB RATIO 1.4 (1.1-1.8); ALBUMIN 3.6 g/dL (3.0-4.8); ALT/SGPT 32 U/L (7-56); AST/SGOT 21 U/L (17-59); BLOOD UREA NITROGEN 15 mg/dL (7-21); CALCIUM 8.6 mg/dL (8.4-10.5); GFR AFRICAN-AMERICAN > 60; GFR NON-AFRICAN AMERICAN > 60
[2018-01-13] MEDS: Enoxaparin 40 mg Syringe SC SCH (10:11)
--- NOTE | 2018-01-13 11:26 | CP.PCM.PN ---
<Guillermo Zavaleta - Last Filed: 01/13/18 11:26> Subjective - Date & Time of Evaluation Date of Evaluation: 01/13/18 Time of Evaluation: 11:25 - Subjective Subjective: Guillermo Zavaleta D.O PGY-1, Internal Medicine progress note for Dr. Mckeon Patient was examined at bedside, no acute overnight events. Patient offers no new complaints at this time. Denies fevers, chills, chest pain, shortness of breath, abdominal pain, N/V/D. Objective - Vital Signs/Intake and Output Vital Signs (last 24 hours): Temp Pulse Resp BP Pulse Ox 97.5 F L 63 20 99/63 L 97 01/13/18 06:00 01/13/18 10:11 01/13/18 06:00 01/13/18 10:11 01/13/18 06:00 - Medications Medications: Current Medications Aspirin (Ecotrin) 81 mg PO DAILY [facility] Last Admin: 01/13/18 10:10 Dose: 81 mg Clonidine HCl (Catapres) 0.1 mg PO Q6H PRN PRN Reason: Systolic Blood Pressure > 160 Last Admin: 01/13/18 06:40 Dose: 0.1 mg Enoxaparin Sodium (Lovenox) 40 mg SC DAILY [facility] PRN Reason: Protocol Last Admin: 01/13/18 10:11 Dose: 40 mg Metoprolol Tartrate (Lopressor) 50 mg PO BID [facility] Last Admin: 01/13/18 10:10 Dose: 50 mg Pantoprazole Sodium (Protonix Ec Tab) 40 mg PO 0600 [facility] Last Admin: 01/13/18 06:17 Dose: 40 mg Quetiapine Fumarate (Seroquel) 25 mg PO HS [facility] PRN Reason: Protocol Last Admin: 01/12/18 23:30 Dose: Not Given - Labs Labs: 01/13/18 06:00 01/13/18 06:00 - Head Exam Head Exam: ATRAUMATIC, NORMAL INSPECTION - Eye Exam Eye Exam: Normal appearance - ENT Exam ENT Exam: Mucous Membranes Moist - Respiratory Exam Respiratory Exam: Clear to Ausculation Bilateral. absent: Rales, Rhonchi, Wheezes - Cardiovascular Exam Cardiovascular Exam: REGULAR RHYTHM, +S1, +S2. absent: Gallop, Rubs, Murmur - GI/Abdominal Exam GI & Abdominal Exam: Soft, Normal Bowel Sounds. absent: Tenderness - Extremities Exam Extremities Exam: absent: Calf Tenderness, Pedal Edema - Neurological Exam Neurological Exam: Alert, Awake. absent: Oriented x3 Additional comments: AAO x 2 - Psychiatric Exam Psychiatric exam: Normal Affect, Normal Mood - Skin Skin Exam: Dry, Normal Color, Warm Assessment and Plan - Assessment and Plan (Free Text) Assessment: Patient is an 82 year old male with unknown past medical history who was found in front of his apartment building confused, unable to walk, and was brought in by EMS to the ED for further evaluation for paroxysmal SVT and cardiac workup. 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 Mckeon <Eloisa Mckeon - Last Filed: 01/13/18 13:43> Objective - Vital Signs/Intake and Output Vital Signs (last 24 hours): Temp Pulse Resp BP Pulse Ox 99.4 F 56 L 18 150/59 L 97 01/13/18 12:00 01/13/18 12:00 01/13/18 12:00 01/13/18 12:00 01/13/18 06:00 - Medications Medications: Current Medications Aspirin (Ecotrin) 81 mg PO DAILY [facility] Last Admin: 01/13/18 10:10 Dose: 81 mg Clonidine HCl (Catapres) 0.1 mg PO Q6H PRN PRN Reason: Systolic Blood Pressure > 160 Last Admin: 01/13/18 06:40 Dose: 0.1 mg Enoxaparin Sodium (Lovenox) 40 mg SC DAILY [facility] PRN Reason: Protocol Last Admin: 01/13/18 10:11 Dose: 40 mg Metoprolol Tartrate (Lopressor) 50 mg PO BID [facility] Last Admin: 01/13/18 10:10 Dose: 50 mg Pantoprazole Sodium (Protonix Ec Tab) 40 mg PO 0600 [facility] Last Admin: 01/13/18 06:17 Dose: 40 mg Quetiapine Fumarate (Seroquel) 25 mg PO HS [facility] PRN Reason: Protocol Last Admin: 01/12/18 23:30 Dose: Not Given - Labs Labs: 01/13/18 06:00 01/13/18 06:00 Attending/Attestation - Attestation I have personally seen and examined this patient.: Yes I have fully participated in the care of the patient.: Yes I have reviewed all pertinent clinical information, including history, physical exam and plan: Yes Notes (Text): 01/13/18 13:39 Attending note; Patient seen and examined with resident. Patient had an episode of fall without any injury last night. Patient was agitated. Given one dose of IV Ativan. One-to-one by the bedside. Patient is a 82 year old Citizen [place] male with unknown past medical history and no out-patient follow-up who was found in front of his apartment building, said to be confused and unable to walk. Recurrent episode of SVT; currently in normal sinus rhythm. Continue metoprolol. Cardiology evaluation appreciated. Cardiac enzymes 3 negative. Patient is alert and awake. Oriented to place. CT head is negative for acute infarct. Neurology evaluation appreciated. Possible dementia. 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 B12 deficiency; started on vitamin B12. TSH is normal. History of alcohol abuse in the past; started on thiamine, multivitamin, folic acid. Echocardiogram ordered. Psychiatric evaluation appreciated; started on Seroquel for mood control. Monitor closely. 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 Patient needs close outpatient follow-up upon discharge. Patient will be referred to [facility] upon discharge.
--- NOTE | 2018-01-13 12:47 | PN ---
DATE: 01/13/2018 SUBJECTIVE: The patient is seen lying in bed on telemetry. He was agitated and restless last evening and was given a dose of Ativan. He is currently resting comfortably. He had a recurrent episode of SVT yesterday. He was given additional dose of beta-alicia and his standing dose was increased. He has remained in sinus rhythm since that time. His current medications include Ecotrin, metoprolol 50 mg b.i.d., Lovenox, Protonix, and Seroquel. PHYSICAL EXAMINATION: GENERAL: He is an elderly man who is comfortable at the present time. VITAL SIGNS: His blood pressure is 100/60 with a pulse of 62, in sinus; respirations are 14; he is afebrile. HEENT: No JVD. CHEST: Few scattered rhonchi. HEART: PMI in normal position. No pathological gallops noted. ABDOMEN: Soft, nontender with normoactive bowel sounds. EXTREMITIES: No edema. DIAGNOSTIC DATA: Potassium 4.3, BUN and creatinine 15 and 1. White count 6.4, hemoglobin and hematocrit 11.5 and 34.4 with platelet count 309,000. IMPRESSION: 1. Paroxysmal supraventricular tachycardia with several recent episodes, currently in sinus rhythm. 2. Altered mental status, workup in progress. 3. History of apparent hypertension. 4. Abnormal electrocardiogram. RECOMMENDATIONS: Current medications will be continued for now. Neurology workup is in progress. An echocardiogram is pending and will be reviewed. Further plans will be made based upon those results as well as his clinical course. We will continue to follow and make further recommendations as appropriate. Neville Fam MD
--- NOTE | 2018-01-13 18:47 | CON ---
DATE: 01/13/2018 HISTORY OF PRESENT ILLNESS: The patient is an 82-year-old single Turk[place] male who does not appear to have any prior full psychiatric history, who is being stabilized on the medical site due to confusion and disorientation. Apparently, the patient was also quite confused on the medical floor as well as combative and Psychiatry was called to evaluate the capacity. I reviewed prior notes as well as assessment, which seemed to indicate that the patient has a higher functioning than the way he has presented recently on the medical floor. According to collaterals obtained by PGY-1, Dr. Dickerson, generally the patient is very independent, walked over time and generally upbeat and is able to care for himself. The patient also is a former alcoholic; however, but uses remote. When I visited with the patient at bedside this morning, he does not appear to be oriented and his focus is poor, though he is polite and cooperative with my questioning. The patient makes logical statements and responses are not always relevant to questioning. He has no idea what month it is, even after I reminded him that it was December, he continues to report that it was July or August, even 5 minutes later when I asked it again. He has no idea what year it is and when I asked about his current location, he indicates "here." The patient was informed that he was in the hospital and informed that he was at [facility]; however, just 3 minutes later, I asked him about which hospital he is currently located in and he is unable to provide this information. His short-term memory is very poor. The patient denies consistently, however, having any depression, wishes or suicidal thoughts. Regarding his personal history, he is able to consistently indicate that he has never been or has any children. He denies any recent drug or alcohol use. He consistently indicates that he is from [place]. His presentation seems very consistent with the diagnosis of delirium, rule out underlying dementia or early dementia. At this time, you know, the patient is not able to understand the circumstances of his current hospitalization, though does appear to understand what is being told to him and indicates the hopefulness about the future and willingness to work with the treatment team to optimize his medical care and he consistently indicates that his willingness to cooperate with medical in this regard whether it would be with labs, medications or imaging studies, he consistently indicates the willingness to cooperate. The patient does not appear to be refusing any procedures at this time, but regardless he does not really have capacity to refuse procedures based on my interview with him as the threshold for refusal of important healthcare is much higher than then threshold of accepting recommendations by medical team. PSYCHIATRIC HISTORY: The patient does not have any formal psychiatric history. SOCIAL HISTORY: The patient was born in [place]. He is single. He has never been . He does not have any according collaterals obtained from PGY-1, Dr. Dickerson and the patient has a remote history of alcoholism. MEDICATIONS: Regarding medications, he does not appear to be on any psychiatric medications except for Seroquel 25 mg at bedtime. Labs and vital signs were reviewed by this provider. IMPRESSION: Delirium, possibly in the background of early dementia. RECOMMENDATIONS: At this time, the patient has capacity to accept treatment as the threshold for accepting essential medical care is more than the threshold of refusing recommended treatment; however, it does not appear that the patient is refusing treatment, but if he does he needs to be assessed for capacity for each specific refusal. Psychiatry in general cannot assess capacity unless it is requested for specific decision, but in general regarding to his capacity to agree medical treatment, he certainly has the ability to agree for the purpose of optimizing his medical care. If in the future, the capacity is assessed at lest specified, what you would like have the capacity assessed, which decision you want the capacity to be assessed for. I would continue with Seroquel 25 mg at bedtime. Psychiatry will sign off at this time. Wisam Preston MD
[2018-01-14] MEDS: Pantoprazole 40 mg EC Tab PO SCH (05:28)
[2018-01-14 06:23] LABS: BASO # 0.02 K/mm3 (0.0-2.0); BASO % 0.4 % (0.0-3.0); EOS # 0.1 (0.0-0.7); EOS % 1.5 % (1.5-5.0); GRAN # 3.09 (1.4-6.5); GRAN % 57.1 % (50.0-68.0); LYMPH # 1.6 (1.2-3.4); LYMPH % 29.3 % (22.0-35.0); MEAN CELL VOLUME 91.6 fl (80.0-105.0); MEAN CORPUSCULAR HEMOGLOBIN 30.8 pg (25.0-35.0); MEAN CORPUSCULAR HGB CONC 33.6 g/dl (31.0-37.0); MEAN PLATELET VOLUME 9.4 fl (7.0-11.0); MONO # 0.6 (0.1-0.6); MONO % 11.7 % (1.0-6.0); RBC 3.57 10^6/uL (3.5-6.1); WHITE BLOOD COUNT 5.4 10^3/ul (4.5-11.0)
[2018-01-14 07:09] LABS: ALB/GLOB RATIO 1.4 (1.1-1.8); ALBUMIN 3.5 g/dL (3.0-4.8); ALT/SGPT 22 U/L (7-56); AST/SGOT 20 U/L (17-59); BLOOD UREA NITROGEN 20 mg/dL (7-21); CALCIUM 8.7 mg/dL (8.4-10.5); GFR AFRICAN-AMERICAN > 60; GFR NON-AFRICAN AMERICAN > 60
--- NOTE | 2018-01-14 08:30 | CP.PCM.PN ---
Subjective - Date & Time of Evaluation Date of Evaluation: 01/14/18 Time of Evaluation: 07:00 - Subjective Subjective: Stable on 2R. Confused. No CP, SOB or SVT reported. V/S noted. RSR/S. Gavin PE: Lungs: clear Cor.: S1S2 Abd.: soft Ext.: no edema Neuro.: confused Labs noted: CMP NL., TC = 132, LDL=72, Trops X3 Neg. ECGs noted CT Head: noted Objective - Vital Signs/Intake and Output Vital Signs (last 24 hours): Temp Pulse Resp BP Pulse Ox 98.5 F 53 L 18 147/75 99 01/14/18 06:00 01/14/18 06:00 01/14/18 06:00 01/14/18 06:00 01/14/18 06:00 - Medications Medications: Current Medications Aspirin (Ecotrin) 81 mg PO DAILY [facility] Last Admin: 01/13/18 10:10 Dose: 81 mg Clonidine HCl (Catapres) 0.1 mg PO Q6H PRN PRN Reason: Systolic Blood Pressure > 160 Last Admin: 01/13/18 06:40 Dose: 0.1 mg Cyanocobalamin (Vitamin B12 1000 Mcg Tab) 1,000 mcg PO DAILY [facility] Last Admin: 01/13/18 14:18 Dose: 1,000 mcg Enoxaparin Sodium (Lovenox) 40 mg SC DAILY [facility] PRN Reason: Protocol Last Admin: 01/13/18 10:11 Dose: 40 mg Folic Acid (Folic Acid) 1 mg PO DAILY [facility] Last Admin: 01/13/18 14:18 Dose: 1 mg Metoprolol Tartrate (Lopressor) 50 mg PO BID [facility] Last Admin: 01/13/18 17:25 Dose: 50 mg Multivitamins/Minerals (Therapeutic-M Tab) 1 tab PO 0800 [facility] Pantoprazole Sodium (Protonix Ec Tab) 40 mg PO 0600 [facility] Last Admin: 01/14/18 05:28 Dose: 40 mg Quetiapine Fumarate (Seroquel) 25 mg PO HS [facility] PRN Reason: Protocol Last Admin: 01/13/18 21:27 Dose: 25 mg Thiamine HCl (Vitamin B1 Tab) 100 mg PO TID [facility] Last Admin: 01/13/18 17:25 Dose: 100 mg - Labs Labs: 01/14/18 05:20 01/14/18 05:20 Assessment and Plan - Assessment and Plan (Free Text) Assessment: AMS/Delirium/Early dementia/Limited medical details SVT Abnormal ECG In-hospital Fall w/o injury HBP Smoker Plan: Continue metoprolol and titrate BP meds as needed Check echo today As per Neuro., Medical Team When/If neuro status improves, consider nuclear stress testing.
[2018-01-14] MEDS: Multivitamin With Minerals Tab PO SCH (08:54)
[2018-01-14] MEDS: Enoxaparin 40 mg Syringe SC SCH (09:01)
--- NOTE | 2018-01-14 14:28 | CP.PCM.PN ---
<Sreedhar Zhang - Last Filed: 01/14/18 13:58> Subjective - Date & Time of Evaluation Date of Evaluation: 01/14/18 Time of Evaluation: 10:15 - Subjective Subjective: Subjective: Patient seen and examined at bedside. Resting comfortably in bed. No acute overnight events. Patient states weakness has resolved. Offers no new complaints at this time. Denies fever, chills, chest pain, shortness of breath, abdominal pain, nausea, vomiting, diarrhea, constipation, and urinary symptoms. 12-point review of systems negative except as indicated in the HPI Physical Examination: - Head Exam Head Exam: ATRAUMATIC, NORMAL INSPECTION - Eye Exam Eye Exam: Normal appearance - ENT Exam ENT Exam: Mucous Membranes Moist - Respiratory Exam Respiratory Exam: Clear to Ausculation Bilateral. absent: Rales, Rhonchi, Wheezes - Cardiovascular Exam Cardiovascular Exam: REGULAR RHYTHM. absent: Gallop, Rubs, Murmur - GI/Abdominal Exam GI & Abdominal Exam: Soft, Normal Bowel Sounds. absent: Tenderness - Extremities Exam Extremities Exam: absent: Calf Tenderness, Pedal Edema - Neurological Exam Neurological Exam: Alert, Awake, Orientated x 1 - Psychiatric Exam Psychiatric exam: Normal Affect, Normal Mood - Skin Skin Exam: Dry, Normal Color, Warm Assessment and Plan: Patient is an 82 year old male who was admitted for evaluation and treatment of confusion, weakness, and gait instability. In the ED the patient was found to be experiencing paroxysmal SVT which have since resolved s/p adjustment of cardiac medications. SVT, paroxysmal - 01/11/2018 CXR: showed no active disease - 01/11/2018 CT head: showed no hydrocephalus, no intracranial hemorrhage - No acute events on monitor - Cardiology consulted- appreciate recommendations- continue lopressor 50mg BID , if neuro status improves consider nuclear stress testing, clonidine .1mg q6 prn for systolic blood pressure greater than 160mmHg - Troponin I: negative x3 - Echo ordered and pending - Healthy heart diet Dementia - Neurology consulted- patient has end stage dementia, with delirium on admission - Psych consulted- cannot determine capacity unless requested for specific decision, continue seroquel 25mg at bedtime - c/w fall precautions - c/w one-to-one Normocytic Anemia - Hemoglobin reviewed, trended, and appreciated- at 11, downtrending - Continue to monitor with CBC series PPx: DVT, GI - DVT ppx- Lovenox 40mg SC Daily GARCÍA - GI ppx- not indicated Patient seen, case discussed with, and plan approved by attending physician, Dr. Daria Zhang. Objective - Vital Signs/Intake and Output Vital Signs (last 24 hours): Temp Pulse Resp BP Pulse Ox 97.7 F 66 20 164/92 H 99 01/14/18 12:00 01/14/18 12:00 01/14/18 12:00 01/14/18 12:29 01/14/18 06:00 - Medications Medications: Current Medications Aspirin (Ecotrin) 81 mg PO DAILY [facility] Last Admin: 01/14/18 09:00 Dose: 81 mg Clonidine HCl (Catapres) 0.1 mg PO Q6H PRN PRN Reason: Systolic Blood Pressure > 160 Last Admin: 01/14/18 12:29 Dose: 0.1 mg Cyanocobalamin (Vitamin B12 1000 Mcg Tab) 1,000 mcg PO DAILY [facility] Last Admin: 01/14/18 09:00 Dose: 1,000 mcg Enoxaparin Sodium (Lovenox) 40 mg SC DAILY [facility] PRN Reason: Protocol Last Admin: 01/14/18 09:01 Dose: 40 mg Folic Acid (Folic Acid) 1 mg PO DAILY [facility] Last Admin: 01/14/18 09:00 Dose: 1 mg Metoprolol Tartrate (Lopressor) 50 mg PO BID [facility] Last Admin: 01/14/18 09:00 Dose: 50 mg Multivitamins/Minerals (Therapeutic-M Tab) 1 tab PO 0800 [facility] Last Admin: 01/14/18 08:54 Dose: 1 tab Pantoprazole Sodium (Protonix Ec Tab) 40 mg PO 0600 [facility] Last Admin: 01/14/18 05:28 Dose: 40 mg Quetiapine Fumarate (Seroquel) 25 mg PO HS [facility] PRN Reason: Protocol Last Admin: 01/13/18 21:27 Dose: 25 mg Thiamine HCl (Vitamin B1 Tab) 100 mg PO TID [facility] Last Admin: 01/14/18 13:29 Dose: 100 mg - Labs Labs: 01/14/18 05:20 01/14/18 05:20 <Daria Zhang R - Last Filed: 01/14/18 14:56> Objective - Vital Signs/Intake and Output Vital Signs (last 24 hours): Temp Pulse Resp BP Pulse Ox 97.7 F 66 20 164/92 H 99 01/14/18 12:00 01/14/18 12:00 01/14/18 12:00 01/14/18 12:29 01/14/18 06:00 - Medications Medications: Current Medications Aspirin (Ecotrin) 81 mg PO DAILY [facility] Last Admin: 01/14/18 09:00 Dose: 81 mg Clonidine HCl (Catapres) 0.1 mg PO Q6H PRN PRN Reason: Systolic Blood Pressure > 160 Last Admin: 01/14/18 12:29 Dose: 0.1 mg Cyanocobalamin (Vitamin B12 1000 Mcg Tab) 1,000 mcg PO DAILY [facility] Last Admin: 01/14/18 09:00 Dose: 1,000 mcg Enoxaparin Sodium (Lovenox) 40 mg SC DAILY [facility] PRN Reason: Protocol Last Admin: 01/14/18 09:01 Dose: 40 mg Folic Acid (Folic Acid) 1 mg PO DAILY [facility] Last Admin: 01/14/18 09:00 Dose: 1 mg Metoprolol Tartrate (Lopressor) 50 mg PO BID [facility] Last Admin: 01/14/18 09:00 Dose: 50 mg Multivitamins/Minerals (Therapeutic-M Tab) 1 tab PO 0800 [facility] Last Admin: 01/14/18 08:54 Dose: 1 tab Quetiapine Fumarate (Seroquel) 25 mg PO HS [facility] PRN Reason: Protocol Last Admin: 01/13/18 21:27 Dose: 25 mg Thiamine HCl (Vitamin B1 Tab) 100 mg PO TID [facility] Last Admin: 01/14/18 13:29 Dose: 100 mg Attending/Attestation - Attestation I have personally seen and examined this patient.: Yes I have fully participated in the care of the patient.: Yes I have reviewed all pertinent clinical information, including history, physical exam and plan: Yes Notes (Text): Patient seen and examined by me at 09:50AM with resident. Patient is new to me. Case discussed with Dr. Conn. Case including HPI, physical exam, and physical assessment and plan discussed with resident. Agree with above with following additions/corrections. Patient is an 82-year-old male unknown past medical history is found in front of his apartment building confused and unable to walk. Patient was found to have SVT. Patient is oriented 1. Unsure if review of systems are accurate. Patient denies chest pain or shortness of breath. No abdominal pain, nausea, or vomiting. No fevers or chills. No headaches or dizziness. No dysuria. No diarrhea or constipation. Patient is on one-to-one. Physical exam: Gen: Awake and alert sitting up in bed in no acute distress HEENT: Normocephalic atraumatic, extraocular muscles intact, pupils equal reactive, oropharynx is pink and moist, no pharyngeal erythema or exudate appreciated, neck is supple. Cardiovascular: Normal rhythm, normal S1-S2. No murmurs, rubs, or gallops appreciated Pulmonary: Normal respiratory effort. No rhonchi, rales or wheezing appreciated. Gastrointestinal: Soft, nontender, nondistended, positive bowel sounds all 4 quadrants, no guarding Musculoskeletal: Moves all extremities, no calf tenderness Central nervous system: Oriented to self. Periods of agitation. Dermatologic: Skin warm and dry Assessment and plan: Patient is an 82-year-old male unknown past medical history is found in front of his apartment building confused and unable to walk. Patient found to have recurrent SVT. 1. Paroxysmal SVT. Cardiology following, recommendations appreciated. Recommends nuclear stress test when patient is neurologically stable. Continue with Lopressor 50mg twice a day and aspirin 81 mg daily. 2-D echo pending. Continue to monitor on telemetry. 2. 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 Patient with intermittent confusion and agitation. Neurology following, recommendations appreciated We'll need to reconsult psychiatry for further recommendations for agitation. Continue Seroquel 25 mg at bedtime. Continue one-to-one. Patient will likely need placement. Continue with high risk fall protocol. 3. Essential hypertension. Continue Lopressor 50 mg twice a day and clonidine 0.1 mg every 6 hours when necessary systolic blood pressure greater than 160. 4. Vitamin B12 deficiency. Continue with by mouth supplement. 5. Anemia. H&H downtrending. No signs of active bleeding. We'll continue to monitor for now. 6. History of alcohol abuse. Continue thiamine, folic acid, and multivitamin. 7. GI and DVT prophylaxis. Protonix and Lovenox Case was discussed in detail with the patient and medical office coordinator at bedside regarding current diagnosis and treatment plan
[2018-01-15 06:22] LABS: BASO # 0.01 K/mm3 (0.0-2.0); BASO % 0.2 % (0.0-3.0); EOS # 0.1 (0.0-0.7); EOS % 1.1 % (1.5-5.0); GRAN # 3.36 (1.4-6.5); GRAN % 62.9 % (50.0-68.0); HEMOGLOBIN 11.3 g/dL (14.0-18.0); LYMPH # 1.4 (1.2-3.4); LYMPH % 26.4 % (22.0-35.0); MEAN CELL VOLUME 92.6 fl (80.0-105.0); MEAN CORPUSCULAR HEMOGLOBIN 30.9 pg (25.0-35.0); MEAN CORPUSCULAR HGB CONC 33.3 g/dl (31.0-37.0); MEAN PLATELET VOLUME 9.5 fl (7.0-11.0); MONO # 0.5 (0.1-0.6); MONO % 9.4 % (1.0-6.0); RBC 3.66 10^6/uL (3.5-6.1); RED CELL DISTRIBUTION WIDTH 13.4 % (11.5-14.5); WHITE BLOOD COUNT 5.3 10^3/ul (4.5-11.0)
[2018-01-15 06:53] LABS: ALB/GLOB RATIO 1.5 (1.1-1.8); ALBUMIN 3.7 g/dL (3.0-4.8); ALT/SGPT 22 U/L (7-56); AST/SGOT 22 U/L (17-59); BLOOD UREA NITROGEN 19 mg/dL (7-21); CALCIUM 9.1 mg/dL (8.4-10.5); GFR AFRICAN-AMERICAN > 60; GFR NON-AFRICAN AMERICAN > 60
--- NOTE | 2018-01-15 08:52 | CARD ---
APPROVED REPORT Date of service: 01/14/2018 EXAM: Two-dimensional and M-mode echocardiogram with Doppler and color Doppler. Other Information Quality : GoodRhythm : INDICATION SVT, AMS 2D DIMENSIONS Left Atrium (2D)3.7 (1.6-4.0cm)IVSd1.1 (0.7-1.1cm) LVDd4.1 (3.9-5.9cm)PWd1.2 (0.7-1.1cm) LVDs2.6 (2.5-4.0cm)FS (%) 36.1 % LVEF (%)66.0 (>50%) M-Mode DIMENSIONS Aortic Root3.20 (2.2-3.7cm)Aortic Cusp Exc.1.40 (1.5-2.0cm) Aortic Valve AoV Peak Qdvpuloy306.0cm/s Mitral Valve MV E Nmleiguf16.5cm/sMV A Lpebukij279.0cm/sE/A ratio0.7 TDI Lateral E' Peak V8.58cm/sMedial E' Peak V5.46cm/sE/Lateral E'8.9 E/Medial E'14.0 Pulmonary Valve PV Peak Xdltgbbu21.2cm/sPV Peak Grad.4mmHg Tricuspid Valve TR Peak Jadsxmwa877nx/sRAP [id number] Peak Gr.32mmHg [id number] LEFT VENTRICLE The left ventricle is normal size. There is normal left ventricular wall thickness. The left ventricular function is normal. The left ventricular ejection fraction is within the normal range. There is normal LV segmental wall motion. RIGHT VENTRICLE The right ventricle is normal size. ATRIA The left atrium size is normal. The right atrium size is normal. The interatrial septum is intact with no evidence for an atrial septal defect. AORTIC VALVE The aortic valve is moderately calcified. MITRAL VALVE The mitral valve is normal in structure. Mitral regurgitation is trace. TRICUSPID VALVE The tricuspid valve is normal in structure. There is mild tricuspid regurgitation. GREAT VESSELS The aortic root is normal in size. PERICARDIAL EFFUSION There is no pericardial effusion. <Conclusion> The left ventricle is normal size. There is normal left ventricular wall thickness. The left ventricular function is normal. The left ventricular ejection fraction is within the normal range. The aortic valve is moderately calcified. Aortic sclerosis.
--- NOTE | 2018-01-15 08:57 | CP.PCM.PN ---
Subjective - Date & Time of Evaluation Date of Evaluation: 01/15/18 Time of Evaluation: 07:00 - Subjective Subjective: Stable on 2R. Confused. No CP, SOB or SVT reported. V/S noted. RSR/S. Gavin PE: Lungs: clear Cor.: S1S2 Abd.: soft Ext.: no edema Neuro.: confused Labs noted. ECGs noted CT Head: noted Echo: Nl LV, Aortic sclerosis. See report. Objective - Vital Signs/Intake and Output Vital Signs (last 24 hours): Temp Pulse Resp BP Pulse Ox 98.5 F 52 L 20 146/85 99 01/15/18 05:31 01/15/18 05:31 01/15/18 05:31 01/15/18 05:31 01/15/18 05:31 Intake and Output: 01/15/18 01/15/18 06:59 18:59 Intake Total 8 Output Total 8 Balance 0 - Medications Medications: Current Medications Aspirin (Ecotrin) 81 mg PO DAILY [facility] Last Admin: 01/14/18 09:00 Dose: 81 mg Clonidine HCl (Catapres) 0.1 mg PO Q6H PRN PRN Reason: Systolic Blood Pressure > 160 Last Admin: 01/14/18 12:29 Dose: 0.1 mg Cyanocobalamin (Vitamin B12 1000 Mcg Tab) 1,000 mcg PO DAILY [facility] Last Admin: 01/14/18 09:00 Dose: 1,000 mcg Enoxaparin Sodium (Lovenox) 40 mg SC DAILY [facility] PRN Reason: Protocol Last Admin: 01/14/18 09:01 Dose: 40 mg Folic Acid (Folic Acid) 1 mg PO DAILY [facility] Last Admin: 01/14/18 09:00 Dose: 1 mg Metoprolol Tartrate (Lopressor) 50 mg PO BID [facility] Last Admin: 01/14/18 17:16 Dose: 50 mg Multivitamins/Minerals (Therapeutic-M Tab) 1 tab PO 0800 [facility] Last Admin: 01/14/18 08:54 Dose: 1 tab Quetiapine Fumarate (Seroquel) 25 mg PO HS [facility] PRN Reason: Protocol Last Admin: 01/14/18 21:16 Dose: 25 mg Thiamine HCl (Vitamin B1 Tab) 100 mg PO TID [facility] Last Admin: 01/14/18 17:16 Dose: 100 mg - Labs Labs: 01/15/18 05:15 01/15/18 05:00 Assessment and Plan - Assessment and Plan (Free Text) Assessment: AMS/Delirium/Early dementia/Limited medical details SVT Abnormal ECG In-hospital Fall w/o injury HBP Smoker Plan: Continue metoprolol and titrate BP meds as needed As per Neuro., Psych. and Medical Team When/If neuro status improves, consider nuclear stress testing.
[2018-01-15] MEDS: Enoxaparin 40 mg Syringe SC SCH (09:20)
[2018-01-15] MEDS: Multivitamin With Minerals Tab PO SCH (09:21)
--- NOTE | 2018-01-15 17:06 | CON ---
DATE: 01/15/2018 HISTORY OF PRESENT ILLNESS: In short, the patient is an 82-year-old male who was admitted on the medical site for evaluation of altered mental status. As per EMS, the patient was standing outside of his house and appeared to be altered. The patient has periods of agitation as well as confusion, was seen by Neurology team who was diagnosed the patient with dementia and severely compromised mentation and agitation. The patient still has episodes of confusion, agitation, required p.r.n. medication. Most recent agitation was at 01:47. The patient tried to take off telemetry leads. The patient was seen by Dr. Preston over the weekend, Dr. Preston signed off because Medical team was asking for capacity for unknown reasons. Today, Medical team requested consultation for agitation. During my assessment, the patient presented to be alert, eating seems to be in good appetite. The patient presented to be in happy mood. The patient said that he knows where he is, but does not remember the name of the hospital, but the patient was able to tell me that this is the hospital. The patient reported that he does not feel depressed. He does not feel like he wants to hurt himself or others. When was asked about circumstances of his admission, the patient said that it was very noisy in the place where he lives and that is why he went outside and he was standing there and PMS showed up. The patient denied that he feels confused and he felt confused at the time of admission. The patient reports that he has good appetite and sleep. The patient reports that he has sisters who are not involved in the patient's life. The patient adamantly denied thoughts of harming himself or others. This administrative underwriter also had collateral information from the [employer]. As per [employer] note, the patient has 1 sister and another sister is in subacute rehab. As per the patient, the patient was able to cook for himself, able to take care of himself. The patient reported that he is doing grocery shopping and paying his bills on time, but this information needs to be confirmed. Going back to the vital signs, seems to be stable. Temperature 98.6, pulse is 58, blood pressure 129/77, respirations 18, oxygen saturation is 99. Medications reviewed. The patient is on aspirin, Catapres, vitamin B12, Lovenox, folic acid, Lopressor, mild multivitamins, Seroquel 25 mg at the nighttime and vitamin B1. Labs reviewed, most recent was from today. Hemoglobin and hematocrit are 11.3 and 33.9 respectively. Urinalysis showed blood trace and protein 100, negative for any substances. As per note, the patient has history of alcohol use disorder and the patient is a smoker. PAST PSYCHIATRIC HISTORY: The patient denied ever been depressed. The patient denied history of being on any psychotropic medication. The patient denied history of suicidal attempts. MENTAL STATUS EXAMINATION: As this administrative underwriter described above. Hygiene is acceptable. ADLs fair. Mood described as great. Affect was expanded. Thought process seems to be concrete. Thought content, this administrative underwriter cannot exclude that the patient confabulates and collateral information needs to be obtained from the family. This administrative underwriter is not sure if the patient is able to live by himself. The patient denied hearing voices, denied seeing things, denied paranoid ideations. The patient was agitated today, tried to remove telemetry monitoring. IMPRESSION: Most likely, the patient is in delirium stage. As per medical team, most likely the patient has dementia plus delirium. PLAN: Agree with the Seroquel 25 mg at the nighttime. Social Service evaluation. The patient might benefit from subacute rehab or [facility] for adults if the patient lives in [place]. Case Management and [employer] consultation recommended. The patient is currently on one-to-one. We will follow up and advise accordingly. Thank you very much for letting me participate in the care of your patient. Dali Clements MD
--- NOTE | 2018-01-15 19:31 | CP.PCM.PN ---
<Nelda Sorensen - Last Filed: 01/15/18 20:37> Subjective - Date & Time of Evaluation Date of Evaluation: 01/15/18 Time of Evaluation: 19:26 - Subjective Subjective: Nelda Sorensen PYG1 -- Hospital Cna -- Medicine Progress Note Patient was seen and evaluated at [facility] this morning. Patient denies complaints overnight and says he was able to sleep. Patient is getting out of bed with assistance. Patient denies difficulty with urination, and admits to non -watery bowel movement as of this morning. Patient denies chest pain, shortness of breath, lower extremity numbness and/or tingling, heart palpitations, nausea , vomiting, and/or fever. Objective - Vital Signs/Intake and Output Vital Signs (last 24 hours): Temp Pulse Resp BP Pulse Ox 98.8 F 60 18 162/76 H 99 01/15/18 17:17 01/15/18 18:00 01/15/18 17:17 01/15/18 17:17 01/15/18 05:31 - Medications Medications: Current Medications Aspirin (Ecotrin) 81 mg PO DAILY [facility] Last Admin: 01/15/18 09:21 Dose: 81 mg Clonidine HCl (Catapres) 0.1 mg PO Q6H PRN PRN Reason: Systolic Blood Pressure > 160 Last Admin: 01/14/18 12:29 Dose: 0.1 mg Cyanocobalamin (Vitamin B12 1000 Mcg Tab) 1,000 mcg PO DAILY [facility] Last Admin: 01/15/18 09:21 Dose: 1,000 mcg Enoxaparin Sodium (Lovenox) 40 mg SC DAILY [facility] PRN Reason: Protocol Last Admin: 01/15/18 09:20 Dose: 40 mg Folic Acid (Folic Acid) 1 mg PO DAILY [facility] Last Admin: 01/15/18 09:21 Dose: 1 mg Metoprolol Tartrate (Lopressor) 50 mg PO BID [facility] Last Admin: 01/15/18 17:39 Dose: 50 mg Multivitamins/Minerals (Therapeutic-M Tab) 1 tab PO 0800 [facility] Last Admin: 01/15/18 09:21 Dose: 1 tab Quetiapine Fumarate (Seroquel) 25 mg PO HS [facility] PRN Reason: Protocol Last Admin: 01/14/18 21:16 Dose: 25 mg Thiamine HCl (Vitamin B1 Tab) 100 mg PO TID [facility] Last Admin: 01/15/18 17:39 Dose: 100 mg - Labs Labs: 01/15/18 05:15 01/15/18 05:00 - Constitutional Appears: Well, No Acute Distress, Confused - Head Exam Head Exam: ATRAUMATIC, NORMAL INSPECTION, NORMOCEPHALIC - Eye Exam Eye Exam: EOMI, Normal appearance. absent: Conjunctival injection, Nystagmus, Scleral icterus - ENT Exam ENT Exam: Mucous Membranes Moist, Normal Exam - Neck Exam Neck Exam: Full ROM, Normal Inspection - Respiratory Exam Respiratory Exam: Clear to Ausculation Bilateral, NORMAL BREATHING PATTERN. absent: Rales, Rhonchi, Wheezes - Cardiovascular Exam Cardiovascular Exam: Bradycardia, REGULAR RHYTHM. absent: Tachycardia, Diastolic murmur, Gallop - GI/Abdominal Exam GI & Abdominal Exam: Soft, Normal Bowel Sounds. absent: Tenderness - Extremities Exam Extremities Exam: Normal Inspection. absent: Pedal Edema - Back Exam Back Exam: NORMAL INSPECTION - Neurological Exam Neurological Exam: Alert, Awake. absent: Oriented x3 (oriented to self and name of president only. Not oriented to year or place) - Psychiatric Exam Psychiatric exam: Normal Affect, Normal Mood - Skin Skin Exam: Dry, Intact, Normal Color, Warm Assessment and Plan - Assessment and Plan (Free Text) Assessment: 82-year-old male with unknown past medical history who was found in front of his apartment building confused and unable to walk. Patient was found to have paroxysmal SVT and was subsequently admitted to [facility] for further evaluation and treatment. Paroxysmal SVT - Echo results, per report: Left ventricle (LV) ejection fraction 66%. LV normal size. Normal LV wall thickness. LV function is normal. Aortic valve is moderately calcified. Aortic sclerosis. - Nuclear stress test recommended once neurologically stable, per cardio - Continue with Metoprolol 50mg PO BID - Continue aspirin 81mg PO Daily - Continue to monitor on tele - Cardiology consulted, appreciate recommendations Delirium with underlying dementia, per neurology - Head CT without contrast on 01/11: no acute findings - Continue Seroquel 25mg PO HS, per psych - Continue 1:1 due to intermittent periods of agitation - Continue high fall risk protocol - Not a candidate for skilled physical therapy services at this time, per PT - Psychiatry consulted, recommendations appreciated - Neurology consulted, recommendations appreciated - Case Management and [employer] consultation recommended for subacute rehab or [facility] for adults if patient lives in [place] , per psych recommendations - metal storage worker recommendations is home with services, recommendations appreciated Asymptomatic Anemia, trending up - Continue to monitor Essential Hypertension - Continue metoprolol 50mg PO BID, hold parameters - Continue Clonidine 0.1mg PO Q6H PRN, hold parameters - Heart Healthy Diet - Monitor Vitamin B12 deficiency - Continue B12 vitamin PO daily History of ETOH abuse - Continue thiamine 100mg PO TID - Continue folic acid 1mg PO Daily History of Tobacco use disorder - Patient advised to discontinue tobacco use and educated on risks of continued smoking DVT Prophylaxis - Lovenox 40mg SC Daily Patient was evaluated and case discussed in detail with Attending Physician Sisi No PGY1 <Daria Zhang R - Last Filed: 01/16/18 07:46> Objective - Vital Signs/Intake and Output Vital Signs (last 24 hours): Temp Pulse Resp BP Pulse Ox 98.2 F 53 L 19 138/77 100 01/16/18 06:00 01/16/18 06:00 01/16/18 06:00 01/16/18 06:00 01/16/18 06:00 Intake and Output: 01/16/18 01/16/18 06:59 18:59 Intake Total 360 Output Total 0 Balance 360 - Medications Medications: Current Medications Aspirin (Ecotrin) 81 mg PO DAILY [facility] Last Admin: 01/15/18 09:21 Dose: 81 mg Clonidine HCl (Catapres) 0.1 mg PO Q6H PRN PRN Reason: Systolic Blood Pressure > 160 Last Admin: 01/15/18 22:16 Dose: 0.1 mg Cyanocobalamin (Vitamin B12 1000 Mcg Tab) 1,000 mcg PO DAILY [facility] Last Admin: 01/15/18 09:21 Dose: 1,000 mcg Enoxaparin Sodium (Lovenox) 40 mg SC DAILY [facility] PRN Reason: Protocol Last Admin: 01/15/18 09:20 Dose: 40 mg Folic Acid (Folic Acid) 1 mg PO DAILY [facility] Last Admin: 01/15/18 09:21 Dose: 1 mg Metoprolol Tartrate (Lopressor) 50 mg PO BID [facility] Last Admin: 01/15/18 17:39 Dose: 50 mg Multivitamins/Minerals (Therapeutic-M Tab) 1 tab PO 0800 [facility] Last Admin: 01/15/18 09:21 Dose: 1 tab Quetiapine Fumarate (Seroquel) 25 mg PO HS [facility] PRN Reason: Protocol Last Admin: 01/15/18 21:31 Dose: 25 mg Thiamine HCl (Vitamin B1 Tab) 100 mg PO TID [facility] Last Admin: 01/15/18 17:39 Dose: 100 mg - Labs Labs: 01/16/18 06:00 01/16/18 06:00 Attending/Attestation - Attestation I have personally seen and examined this patient.: Yes I have fully participated in the care of the patient.: Yes I have reviewed all pertinent clinical information, including history, physical exam and plan: Yes Notes (Text): Patient seen and examined by me at 09:45AM with resident 01/15/18. Case including HPI, physical exam, and physical assessment and plan discussed with resident. Agree with above with following additions/corrections. Patient states that he is feeling ok today. States he feels "strong." Patient denies chest pain or shortness of breath. No abdominal pain, nausea, or vomiting. No fevers or chills. No headaches or dizziness. No dysuria. No diarrhea or constipation. Patient is oriented 2. Unsure if review of systems are accurate. Patient is on one-to-one. Physical exam: Gen: Awake and alert sitting up in bed in no acute distress HEENT: Normocephalic atraumatic. Extraocular muscles intact, pupils equal reactive. Oropharynx is pink and moist, no pharyngeal erythema or exudate appreciated. Neck is supple. Cardiovascular: Bradycardic S1-S2. No murmurs, rubs, or gallops appreciated Pulmonary: Normal respiratory effort. No rhonchi, rales or wheezing appreciated. Gastrointestinal: Soft, nontender, nondistended, positive bowel sounds all 4 quadrants, no guarding Musculoskeletal: Moves all extremities, no calf tenderness Central nervous system: Oriented to self and place. Dermatologic: Skin warm and dry Assessment and plan: Patient is an 82-year-old male unknown past medical history is found in front of his apartment building confused and unable to walk. Patient found to have recurrent SVT and delirium. 1. 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 Patient with intermittent confusion and agitation. Neurology following, recommendations appreciated. Psychiatry following, recommendations appreciated. Continue Seroquel 25 mg at bedtime. Continue one-to-one. Continue with high risk fall protocol. Follow up with social work team for possible placement and discharge planning. 2. Paroxysmal SVT. Now with asymptomatic bradycardia in sinus rhythm. Cardiology following, recommendations appreciated. Recommends nuclear stress test when patient is neurologically stable. Continue with Lopressor 50mg twice a day and aspirin 81 mg daily. 2-D per bargeman shows a left ventricle of normal size and EF of 66% (please see official read for full details). Continue to monitor on telemetry. 3. Essential hypertension. Continue Lopressor 50 mg twice a day and clonidine 0.1 mg every 6 hours when necessary systolic blood pressure greater than 160. 4. Vitamin B12 deficiency. Continue with oral supplement. 5. Anemia. H&H stable. No signs of active bleeding. We'll continue to monitor for now. 6. History of alcohol abuse. Continue thiamine, folic acid, and multivitamin. 7. GI and DVT prophylaxis. Protonix and Lovenox Case was discussed in detail with the patient and medical observer at bedside regarding current diagnosis and treatment plan
--- NOTE | 2018-01-16 05:58 | CP.PCM.PN ---
<Nelda Sorensen - Last Filed: 01/16/18 16:28> Subjective - Date & Time of Evaluation Date of Evaluation: 01/16/18 Time of Evaluation: 05:57 - Subjective Subjective: Nelda Sorensen PYG1 -- Body Cleaner -- Medicine Progress Note Patient was seen at bedside this morning. Patient denies acute events over night. Patient denies bowel movement, but admits to tolerating regular diet. Review of systems is otherwise unremarkable for shortness of breath, palpitations, chest pain, lower extremity edema, fatigue, nausea, vomiting and or headache. Objective - Vital Signs/Intake and Output Vital Signs (last 24 hours): Temp Pulse Resp BP Pulse Ox 98.3 F 53 L 19 190/88 H 99 01/15/18 23:45 01/16/18 05:15 01/15/18 23:45 01/15/18 23:45 01/15/18 23:45 Intake and Output: 01/15/18 01/16/18 18:59 06:59 Intake Total 360 Output Total 0 Balance 360 - Medications Medications: Current Medications Aspirin (Ecotrin) 81 mg PO DAILY [facility] Last Admin: 01/15/18 09:21 Dose: 81 mg Clonidine HCl (Catapres) 0.1 mg PO Q6H PRN PRN Reason: Systolic Blood Pressure > 160 Last Admin: 01/15/18 22:16 Dose: 0.1 mg Cyanocobalamin (Vitamin B12 1000 Mcg Tab) 1,000 mcg PO DAILY [facility] Last Admin: 01/15/18 09:21 Dose: 1,000 mcg Enoxaparin Sodium (Lovenox) 40 mg SC DAILY [facility] PRN Reason: Protocol Last Admin: 01/15/18 09:20 Dose: 40 mg Folic Acid (Folic Acid) 1 mg PO DAILY [facility] Last Admin: 01/15/18 09:21 Dose: 1 mg Metoprolol Tartrate (Lopressor) 50 mg PO BID [facility] Last Admin: 01/15/18 17:39 Dose: 50 mg Multivitamins/Minerals (Therapeutic-M Tab) 1 tab PO 0800 [facility] Last Admin: 01/15/18 09:21 Dose: 1 tab Quetiapine Fumarate (Seroquel) 25 mg PO HS [facility] PRN Reason: Protocol Last Admin: 01/15/18 21:31 Dose: 25 mg Thiamine HCl (Vitamin B1 Tab) 100 mg PO TID [facility] Last Admin: 01/15/18 17:39 Dose: 100 mg - Labs Labs: 01/15/18 05:15 01/15/18 05:00 - Constitutional Appears: Non-toxic, No Acute Distress, Confused - Head Exam Head Exam: ATRAUMATIC, NORMAL INSPECTION, NORMOCEPHALIC - Eye Exam Eye Exam: Normal appearance, PERRL Pupil Exam: NORMAL ACCOMODATION - ENT Exam ENT Exam: Mucous Membranes Moist, Normal Exam - Neck Exam Neck Exam: Normal Inspection. absent: Lymphadenopathy - Respiratory Exam Respiratory Exam: Clear to Ausculation Bilateral, NORMAL BREATHING PATTERN. absent: Chest Wall Tenderness, Prolonged Expiratory Phase, Stridor - Cardiovascular Exam Cardiovascular Exam: Bradycardia, REGULAR RHYTHM. absent: Diastolic murmur, Gallop, Rubs - GI/Abdominal Exam GI & Abdominal Exam: Soft, Normal Bowel Sounds. absent: Distended, Firm, Guarding, Tenderness - Extremities Exam Extremities Exam: Normal Inspection. absent: Tenderness - Back Exam Back Exam: NORMAL INSPECTION. absent: tenderness - Neurological Exam Neurological Exam: Alert, Awake. absent: Oriented x3 (oriented only to person ) - Psychiatric Exam Psychiatric exam: Normal Affect, Normal Mood - Skin Skin Exam: Dry, Intact, Normal Color, Warm Assessment and Plan - Assessment and Plan (Free Text) Assessment: 82-year-old male with unknown past medical history who was found in front of his apartment building confused and unable to walk. Patient was found to have paroxysmal SVT and was subsequently admitted further evaluation and treatment. Delirium with underlying dementia, per neurology - Head CT without contrast on 01/11: no acute findings - Continue Seroquel 25mg PO HS, per psych - Continue 1:1 due to intermittent episodes of wandering and/or agitation, per psych recommendations - Continue high fall risk protocol - Not a candidate for skilled physical therapy services at this time, per PT - Case Management and Director Radiation Oncology consultation recommended for subacute rehab or [facility] for adults if patient lives in [place] , per psych recommendations, but patient denies - Patient was asked about [facility] care, but patient is unwilling - parish worker recommendations is home with services, recommendations appreciated - Psychiatry and Neurology consulted, recommendations appreciated Paroxysmal SVT, resolved - Discontinue tele - Echo results, per report: Left ventricle (LV) ejection fraction 66%. LV normal size. Normal LV wall thickness. LV function is normal. Aortic valve is moderately calcified. Aortic sclerosis. - Nuclear stress test recommended once neurologically stable, per cardio - Continue with Metoprolol 50mg PO BID - Continue aspirin 81mg PO Daily - Continue to monitor on tele - Cardiology consulted, appreciate recommendations Asymptomatic Anemia, trending up - Continue to monitor Essential Hypertension - Continue metoprolol 50mg PO BID, hold parameters - Continue Clonidine 0.1mg PO Q6H PRN, hold parameters - Heart Healthy Diet - Monitor Vitamin B12 deficiency - Continue B12 vitamin PO daily History of ETOH abuse - Continue thiamine 100mg PO TID - Continue folic acid 1mg PO Daily History of Tobacco use disorder - Patient advised to discontinue tobacco use and educated on risks of continued smoking DVT Prophylaxis - Lovenox 40mg SC Daily Patient was evaluated and case discussed in detail with Attending Physician Sisi No PGY1 <Daria Zhang R - Last Filed: 01/16/18 17:52> Objective - Vital Signs/Intake and Output Vital Signs (last 24 hours): Temp Pulse Resp BP Pulse Ox 98.5 F 67 20 157/95 H 100 01/16/18 17:20 01/16/18 17:20 01/16/18 17:20 01/16/18 17:20 01/16/18 06:00 Intake and Output: 01/16/18 01/16/18 06:59 18:59 Intake Total 360 Output Total 0 Balance 360 - Medications Medications: Current Medications Aspirin (Ecotrin) 81 mg PO DAILY [facility] Last Admin: 01/16/18 09:38 Dose: 81 mg Clonidine HCl (Catapres) 0.1 mg PO Q6H PRN PRN Reason: Systolic Blood Pressure > 160 Last Admin: 01/15/18 22:16 Dose: 0.1 mg Cyanocobalamin (Vitamin B12 1000 Mcg Tab) 1,000 mcg PO DAILY [facility] Last Admin: 01/16/18 09:38 Dose: 1,000 mcg Enoxaparin Sodium (Lovenox) 40 mg SC DAILY [facility] PRN Reason: Protocol Last Admin: 01/16/18 09:37 Dose: 40 mg Folic Acid (Folic Acid) 1 mg PO DAILY [facility] Last Admin: 01/16/18 09:38 Dose: 1 mg Metoprolol Tartrate (Lopressor) 50 mg PO BID [facility] Last Admin: 01/16/18 17:14 Dose: 50 mg Multivitamins/Minerals (Therapeutic-M Tab) 1 tab PO 0800 [facility] Last Admin: 01/16/18 09:38 Dose: 1 tab Quetiapine Fumarate (Seroquel) 25 mg PO HS [facility] PRN Reason: Protocol Last Admin: 01/15/18 21:31 Dose: 25 mg Thiamine HCl (Vitamin B1 Tab) 100 mg PO TID [facility] Last Admin: 01/16/18 17:14 Dose: 100 mg - Labs Labs: 01/16/18 06:00 01/16/18 06:00 Attending/Attestation - Attestation I have personally seen and examined this patient.: Yes I have fully participated in the care of the patient.: Yes I have reviewed all pertinent clinical information, including history, physical exam and plan: Yes Notes (Text): Patient seen and examined by me at 10:00AM with resident. Case including HPI, physical exam, and physical assessment and plan discussed with resident. Agree with above with following additions/corrections. Patient states that he is feeling ok today. He states he feels sleepy today. Does not want to answer questions. Patient denies chest pain or shortness of breath. No abdominal pain, nausea, or vomiting. No fevers or chills. No headaches or dizziness. No dysuria. Unsure if review of systems are accurate as patient is confused. Patient is on one-to-one. Physical exam: Gen: Awake and alert sitting up in bed in no acute distress HEENT: Normocephalic atraumatic. Extraocular muscles intact, pupils equal reactive. Oropharynx is pink and moist, no pharyngeal erythema or exudate appreciated. Neck is supple. Cardiovascular: Bradycardic S1-S2. No murmurs, rubs, or gallops appreciated Pulmonary: Normal respiratory effort. No rhonchi, rales or wheezing appreciated. Gastrointestinal: Soft, nontender, nondistended, positive bowel sounds all 4 quadrants, no guarding Musculoskeletal: Moves all extremities, no calf tenderness Central nervous system: Oriented to self. confused, sleepy, not answering questions properly. Dermatologic: Skin warm and dry Assessment and plan: Patient is an 82-year-old male unknown past medical history is found in front of his apartment building confused and unable to walk. Patient found to have recurrent SVT and delirium. 1. 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 Patient with intermittent confusion and agitation. Continue one to one. Continue Seroquel 25 mg at bedtime. Patient has been requiring intermittent haldol for agitation. Neurology following, recommendations appreciated. Psychiatry following, recommendations appreciated.Continue with high risk fall protocol. Working with clinical social work aide for discharge planning. 2. Paroxysmal SVT. Now with intermittent asymptomatic bradycardia in sinus rhythm. Cardiology following, recommendations appreciated. Continue with Lopressor 50mg twice a day and aspirin 81 mg daily. Recommends nuclear stress test when patient is neurologically stable. 2-D per adjuster leader shows a left ventricle of normal size and EF of 66% (please see official read for full details). 3. Essential hypertension. Continue Lopressor 50 mg twice a day and clonidine 0.1 mg every 6 hours when necessary systolic blood pressure greater than 160. 4. Vitamin B12 deficiency. Continue with oral supplement. 5. Anemia. H&H stable. No signs of active bleeding. Continue to monitor. 6. History of alcohol abuse. Continue thiamine, folic acid, and multivitamin. 7. GI and DVT prophylaxis. Protonix and Lovenox Case was discussed in detail with program medical director at bedside regarding current diagnosis and treatment plan
[2018-01-16 06:41] LABS: BASO # 0.01 K/mm3 (0.0-2.0); BASO % 0.2 % (0.0-3.0); EOS # 0.1 (0.0-0.7); EOS % 1.4 % (1.5-5.0); GRAN # 3.76 (1.4-6.5); GRAN % 63.9 % (50.0-68.0); HEMOGLOBIN 11.5 g/dL (14.0-18.0); LYMPH # 1.4 (1.2-3.4); LYMPH % 23.9 % (22.0-35.0); MEAN CELL VOLUME 93.3 fl (80.0-105.0); MEAN CORPUSCULAR HEMOGLOBIN 30.7 pg (25.0-35.0); MEAN CORPUSCULAR HGB CONC 32.9 g/dl (31.0-37.0); MEAN PLATELET VOLUME 9.4 fl (7.0-11.0); MONO # 0.6 (0.1-0.6); MONO % 10.6 % (1.0-6.0); RBC 3.75 10^6/uL (3.5-6.1); RED CELL DISTRIBUTION WIDTH 13.3 % (11.5-14.5); WHITE BLOOD COUNT 5.9 10^3/ul (4.5-11.0)
[2018-01-16 06:56] LABS: ALB/GLOB RATIO 1.4 (1.1-1.8); ALBUMIN 3.7 g/dL (3.0-4.8); ALT/SGPT 28 U/L (7-56); AST/SGOT 25 U/L (17-59); BLOOD UREA NITROGEN 18 mg/dL (7-21); GFR AFRICAN-AMERICAN > 60; GFR NON-AFRICAN AMERICAN > 60
[2018-01-16] MEDS ORDERED: Iodixanol 320 mg/ml 50 ml Sol IV ONE (09:14)
[2018-01-16] MEDS: Enoxaparin 40 mg Syringe SC SCH (09:37)
[2018-01-16] MEDS: Multivitamin With Minerals Tab PO SCH (09:38)
--- NOTE | 2018-01-16 11:58 | PN ---
DATE: 01/16/2018 SUBJECTIVE: The patient is seen sitting in bed on Telemetry. He is awake and alert today. He answers questions appropriately. He has had no further dysrhythmias. CURRENT MEDICATIONS: Include Ecotrin once daily, metoprolol 50 mg b.i.d., Lovenox 40 mg daily, Seroquel 25 mg at bedtime, B12, thiamine, folic acid and Catapres p.r.n. OBJECTIVE: GENERAL: He is an elderly man, appears comfortable at rest. VITAL SIGNS: His blood pressure is 138/76 with a pulse of 52, in sinus; respirations are 14; he is afebrile. HEENT: Normocephalic and atraumatic. NECK: Supple. No JVD noted. CHEST: A few scattered rhonchi. HEART: PMI in normal position. No pathological gallops noted. ABDOMEN: Soft and nontender. Normoactive bowel sounds. EXTREMITIES: No edema. DIAGNOSTIC DATA: Potassium 4.4, BUN and creatinine 18 and 0.9. White count 5.9, hemoglobin and hematocrit 11.5 and 35, platelet count 296,000. IMPRESSION: 1. Paroxysmal supraventricular tachycardia, currently controlled with current dose of beta-alicia. 2. Altered mental status, appears somewhat improved, further evaluation in progress. At the present time, continue beta-alicia use as advised. Eventual stress test should be considered once medically stable. We will continue to follow and make further recommendations as appropriate. Neville Fam MD
--- NOTE | 2018-01-16 13:00 | CON ---
DATE: 01/16/2018 HISTORY OF PRESENT ILLNESS: Shortly, the patient is 82 years old, with no known previous psychiatric history. The patient was initially seen yesterday. This health technical writer was involved into the patient's care for altered mental status as well as periods of agitation and confusion. The patient was followed up today. The patient presented to be confused. He does not know where he is. He does not remember this health technical writer, but the patient appears to be in good spirit and good mood. The patient is with good appetite. This health technical writer advised yesterday was social work evaluation and also to find out what is the patient's living situation and does he have any services at home and possible [place] center. PHYSICAL EXAMINATION: VITAL SIGNS: Stable. The patient's temperature is 98.2, pulse is 53, blood pressure 138/77, respirations 19, oxygen saturation is 100%. MEDICATIONS: Reviewed. The patient is on aspirin, Catapres, vitamin B12, Lovenox, folic acid, Lopressor, multivitamins, Seroquel, and vitamin B1 100 mg three times a day. LABORATORY DATA: Reviewed. Most recent was from today. Hemoglobin and hematocrit are 11.5 and 35. Urinalysis positive for blood in the urine. Toxicology is negative. MENTAL STATUS EXAM: The patient appears to be pleasantly confused. The patient is on one-to-one. The patient does not remember this health technical writer. Fair eye contact. Speech was underproductive. He has no answers. Mood described as perfect. Affect was reactive. Thought process: The patient has confabulation. Thought content: The patient denied being depressed. Denied thoughts of harming himself or others. Denied intents or plan. Insight and judgment seem to be limited. Impulses are unpredictable. IMPRESSION: Most likely, the patient is in delirium stage which is clearing as well as dementia. PLAN: Social work evaluation. Discharge plan needs to be discussed. If the patient does not have power of assistant attorney general, it has to be discussed with the patient's family. In regards of the medications, Seroquel at the nighttime. The patient is on one-to-one for wandering behavior and episodes of agitation. Continue that. We will follow up on this patient every other day. Should you have any questions, give me a call back. Thank you very much for letting me participate in care of your patient. Dali Clements MD [facility] # [id number]
--- NOTE | 2018-01-17 06:19 | CP.PCM.PN ---
<Nelda Sorensen - Last Filed: 01/17/18 12:04> Subjective - Date & Time of Evaluation Date of Evaluation: 01/17/18 Time of Evaluation: 06:16 - Subjective Subjective: Nelda Sorensen PYG1 -- Administrative Coordinator -- Medicine Progress Note Patient was seen and evaluated at beside this morning. Patient denies complaints overnight and says he was able to sleep. Patient is getting out of bed without assistance. Patient denies dysuria or bowel movement. Patient denies chest pain, shortness of breath, lower extremity numbness and/or tingling , palpitations, nausea, vomiting, and/or fever. Objective - Vital Signs/Intake and Output Vital Signs (last 24 hours): Temp Pulse Resp BP Pulse Ox 98.6 F 57 L 20 154/82 H 96 01/17/18 06:00 01/17/18 06:00 01/17/18 06:00 01/17/18 06:00 01/17/18 06:00 Intake and Output: 01/16/18 01/17/18 18:59 06:59 Intake Total 1460 Output Total 1700 Balance -240 - Medications Medications: Current Medications Aspirin (Ecotrin) 81 mg PO DAILY [facility] Last Admin: 01/16/18 09:38 Dose: 81 mg Clonidine HCl (Catapres) 0.1 mg PO Q6H PRN PRN Reason: Systolic Blood Pressure > 160 Last Admin: 01/16/18 22:59 Dose: 0.1 mg Cyanocobalamin (Vitamin B12 1000 Mcg Tab) 1,000 mcg PO DAILY [facility] Last Admin: 01/16/18 09:38 Dose: 1,000 mcg Enoxaparin Sodium (Lovenox) 40 mg SC DAILY [facility] PRN Reason: Protocol Last Admin: 01/16/18 09:37 Dose: 40 mg Folic Acid (Folic Acid) 1 mg PO DAILY [facility] Last Admin: 01/16/18 09:38 Dose: 1 mg Metoprolol Tartrate (Lopressor) 50 mg PO BID [facility] Last Admin: 01/16/18 17:14 Dose: 50 mg Multivitamins/Minerals (Therapeutic-M Tab) 1 tab PO 0800 [facility] Last Admin: 01/16/18 09:38 Dose: 1 tab Quetiapine Fumarate (Seroquel) 25 mg PO HS [facility] PRN Reason: Protocol Last Admin: 01/16/18 21:31 Dose: 25 mg Thiamine HCl (Vitamin B1 Tab) 100 mg PO TID [facility] Last Admin: 01/16/18 17:14 Dose: 100 mg - Labs Labs: 01/16/18 06:00 01/16/18 06:00 - Constitutional Appears: Non-toxic, No Acute Distress, Confused - Head Exam Head Exam: ATRAUMATIC, NORMAL INSPECTION, NORMOCEPHALIC - Eye Exam Eye Exam: EOMI, Normal appearance Pupil Exam: NORMAL ACCOMODATION - ENT Exam ENT Exam: Mucous Membranes Moist, Normal Exam - Neck Exam Neck Exam: Full ROM, Normal Inspection - Respiratory Exam Respiratory Exam: Clear to Ausculation Bilateral, NORMAL BREATHING PATTERN - Cardiovascular Exam Cardiovascular Exam: Bradycardia, REGULAR RHYTHM - GI/Abdominal Exam GI & Abdominal Exam: Soft, Normal Bowel Sounds - Extremities Exam Extremities Exam: Full ROM, Normal Capillary Refill, Normal Inspection - Back Exam Back Exam: NORMAL INSPECTION - Neurological Exam Neurological Exam: Alert, Awake, Normal Gait Additional comments: oriented to person only - Psychiatric Exam Psychiatric exam: Normal Affect, Normal Mood - Skin Skin Exam: Dry, Intact, Normal Color, Warm Assessment and Plan - Assessment and Plan (Free Text) Assessment: Assessment: 82-year-old male with unknown past medical history who was found in front of his apartment building confused and unable to walk. Patient was found to have paroxysmal SVT and was subsequently admitted to [facility] for further evaluation and treatment. Paroxysmal SVT, resolved - Echo results, per report: Left ventricle (LV) ejection fraction 66%. LV normal size. Normal LV wall thickness. LV function is normal. Aortic valve is moderately calcified. Aortic sclerosis. - Tele was discontinued - Nuclear stress test recommended once neurologically stable, per cardio - Continue with Metoprolol 50mg PO BID - Continue aspirin 81mg PO Daily - Cardiology consulted, appreciate recommendations Delirium with underlying dementia, per neurology - Head CT without contrast on 01/11: no acute findings - Continue Seroquel 25mg PO HS, per psych - Continue 1:1 due to intermittent periods of agitation - Continue high fall risk protocol - Per Case Management, patient was accepted to [facility] in [place] - Psychiatry consulted, recommendations appreciated - Neurology consulted, recommendations appreciated Asymptomatic Anemia, trending up - Continue to monitor Essential Hypertension - Continue metoprolol 50mg PO BID, hold parameters - Continue Clonidine 0.1mg PO Q6H PRN, hold parameters - Heart Healthy Diet - Monitor Vitamin B12 deficiency - Continue B12 vitamin PO daily History of ETOH abuse - Continue thiamine 100mg PO TID - Continue folic acid 1mg PO Daily History of Tobacco use disorder - Patient advised to discontinue tobacco use and educated on risks of continued smoking DVT Prophylaxis - Lovenox 40mg SC Daily Patient was evaluated and case discussed in detail with Attending Physician Sisi No PGY1 <Daria Zhang - Last Filed: 01/17/18 16:21> Objective - Vital Signs/Intake and Output Vital Signs (last 24 hours): Temp Pulse Resp BP Pulse Ox 98.6 F 61 20 132/70 96 01/17/18 06:00 01/17/18 09:14 01/17/18 06:00 01/17/18 09:14 01/17/18 06:00 Intake and Output: 01/17/18 01/17/18 06:59 18:59 Intake Total 120 Balance 120 - Medications Medications: Current Medications Alprazolam (Xanax) 0.25 mg PO DAILY PRN; Protocol PRN Reason: agitation/restlessness Stop: 01/25/18 10:01 Aspirin (Ecotrin) 81 mg PO DAILY [facility] Last Admin: 01/17/18 09:14 Dose: 81 mg Clonidine HCl (Catapres) 0.1 mg PO Q6H PRN PRN Reason: Systolic Blood Pressure > 160 Last Admin: 01/16/18 22:59 Dose: 0.1 mg Cyanocobalamin (Vitamin B12 1000 Mcg Tab) 1,000 mcg PO DAILY [facility] Last Admin: 01/17/18 09:14 Dose: 1,000 mcg Enoxaparin Sodium (Lovenox) 40 mg SC DAILY [facility] PRN Reason: Protocol Last Admin: 01/17/18 09:13 Dose: 40 mg Folic Acid (Folic Acid) 1 mg PO DAILY [facility] Last Admin: 01/17/18 09:14 Dose: 1 mg Metoprolol Tartrate (Lopressor) 50 mg PO BID [facility] Last Admin: 01/17/18 09:14 Dose: 50 mg Multivitamins/Minerals (Therapeutic-M Tab) 1 tab PO 0800 [facility] Last Admin: 01/17/18 09:14 Dose: 1 tab Quetiapine Fumarate (Seroquel) 25 mg PO HS [facility] PRN Reason: Protocol Thiamine HCl (Vitamin B1 Tab) 100 mg PO TID [facility] Last Admin: 01/17/18 13:24 Dose: 100 mg - Labs Labs: 01/16/18 06:00 01/16/18 06:00 Attending/Attestation - Attestation I have personally seen and examined this patient.: Yes I have fully participated in the care of the patient.: Yes I have reviewed all pertinent clinical information, including history, physical exam and plan: Yes Notes (Text): Patient seen and examined by me at 9:50AM with resident. Case including HPI, physical exam, and physical assessment and plan discussed with resident. Agree with above with following additions/corrections. Patient states that he is feeling "strong." He does not remember events from yesterday. Patient is oriented x 2. Events from yesterday noted. Patient was agitated and trying to leave the hospital yesterday. Patient denies chest pain or shortness of breath. No abdominal pain, nausea, or vomiting. No fevers or chills. No headaches or dizziness. No dysuria. Unsure if review of systems are accurate as patient is confused. Patient is on one-to-one. Physical exam: Gen: Awake and alert sitting up in bed in no acute distress HEENT: Normocephalic atraumatic. Extraocular muscles intact, pupils equal reactive. Oropharynx is pink and moist, no pharyngeal erythema or exudate appreciated. Neck is supple. Cardiovascular: Normal rhythm. Normal S1-S2. No murmurs, rubs, or gallops appreciated Pulmonary: Normal respiratory effort. No rhonchi, rales or wheezing appreciated. Gastrointestinal: Soft, nontender, nondistended, positive bowel sounds all 4 quadrants, no guarding Musculoskeletal: Moves all extremities, no calf tenderness Central nervous system: Oriented to self and place, not time. With confusion. Dermatologic: Skin warm and dry Assessment and plan: Patient is an 82-year-old male unknown past medical history is found in front of his apartment building confused and unable to walk. Patient found to have recurrent SVT and delirium. 1. 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 Waxes and wanes. Patient with intermittent confusion and agitation. Continue one to one. Continue Seroquel 25 mg at bedtime. Requiring intermittent haldol for agitation. Psychiatry following, recommendations appreciated. Continue with high risk fall protocol. Working with licensed master social worker for discharge planning, family is suppose to come tomorrow. 2. Paroxysmal SVT. With intermittent asymptomatic bradycardia in sinus rhythm. Cardiology following, recommendations appreciated. Continue with Lopressor 50mg twice a day. Continue Aspirin 81 mg daily. Recommends nuclear stress test when patient is neurologically stable. 2-D per mortgage funder shows a left ventricle of normal size and EF of 66% (please see official read for full details). 3. Essential hypertension. Continue Lopressor 50 mg twice a day. Continue clonidine 0.1 mg every 6 hours when necessary for systolic blood pressure greater than 160. 4. Vitamin B12 deficiency. Continue with oral supplement. 5. Anemia. H&H stable. No signs of active bleeding. Continue to monitor. 6. History of alcohol abuse. Continue thiamine, folic acid, and multivitamin. 7. GI and DVT prophylaxis. Protonix and Lovenox Case was discussed in detail with patient and director biomedical engineering at bedside regarding current diagnosis and treatment plan
[2018-01-17] MEDS: Enoxaparin 40 mg Syringe SC SCH (09:13)
[2018-01-17] MEDS: Multivitamin With Minerals Tab PO SCH (09:14)
--- NOTE | 2018-01-17 14:06 | PN ---
DATE: 01/17/2018 SUBJECTIVE: In short, the patient is an 82-year-old male with possible history of dementia. The patient was admitted for altered mental status. At present moment, the patient is in the medical side. The patient still has episodes of confusion, restless behavior, majority of the time this is when sun is downing. Patient has medication compliance. No agitation, no aggression. Patient seems to be in good mood. At the same time, High School Librarian is working on safe discharge plan. Patient does not have power of loan counselor. I hope that patient will be improving and will be able to point family member to become power of loan counselor. In regards to patient's presentation, patient will follow with Dr. Patel. Patient presented to be happy. As per staff, patient eats 100% of his meals. No behavioral incident today, but yesterday patient wanted to go home, was very confused, Victorino Chilel was called, but patient was able to calm down. PHYSICAL EXAMINATION: VITAL SIGNS: Reviewed. Seems to be stable. Temperature is 98.6, pulse 61, blood pressure 132/72, respirations 20, oxygen saturation 96%. MEDICATIONS: Reviewed. Patient is on aspirin, Catapres, vitamin B12, Lovenox, folic acid, Lopressor, multivitamins, Seroquel 25 mg at nighttime, thiamine 100 mg three times a day. Patient also might benefit from small dose of Xanax 0.25 mg daily as needed for restless behavior when sun is downing. LABORATORY DATA: Reviewed. Most recent was from yesterday, hemoglobin and hematocrit 11.5 and 35. MENTAL STATUS EXAMINATION: Patient appears to be confabulating, happy, smiling. Mood described as "I am always happy 24x7." Affect was reactive. Mood congruent. Thought process seems to be confabulating and circumstantial. Thought content: Patient denied visual, auditory or tactile hallucinations. Has periods of confusion, but delirium is clearing. Insight and judgment seems to be limited. Impulses are better controlled. IMPRESSION: Delirium, dementia. PLAN: This story writer suggested to continue Seroquel at the nighttime, Xanax as needed for agitation and restless behavior. High School Librarian involved in order to have clear discharge plan. As per staff, patient's family wants to come over tomorrow. POA need to be discussed. There are no acute issues from the psychiatric standpoint. This story writer will sign off. Should they have any questions, give me a call back. Discussed with medical librarian in details. Thank you very much for letting me participate in care of your patient. Dali Clements MD MTDIlya
[2018-01-18] MEDS: Multivitamin With Minerals Tab PO SCH (08:23)
[2018-01-18] MEDS: Enoxaparin 40 mg Syringe SC SCH (10:21)
--- NOTE | 2018-01-18 13:21 | CP.PCM.PN ---
Addendum entered and electronically signed by Nelda Sorensen DO 01/18/18 20: 46: Patient's [id number] Iban Martinez was contacted by social work manager and case management regarding the patient's discharge to home under said in-law's care. However, further conversations with said in-law over the phone revealed that the aforementioned in-law would only be able to assist in dropping the patient off at the patient's apartment without supervision and/or confirmation that said in-law is able to assist with the patient's transportation to [facility], as it has been previously documented. Given the current medical state of the patient, disposition to home without assistance is neither safe nor optimal, as it is paramount that said patient's medications are administered correctly and safely. Will continue to follow-up with case management and social work manager. Original Note: <Nelda Sorensen - Last Filed: 01/18/18 13:15> Subjective - Date & Time of Evaluation Date of Evaluation: 01/18/18 Time of Evaluation: 13:16 - Subjective Subjective: Nelda Sorensen PYG1 -- Uc Architect -- Medicine Progress Note Patient was seen and evaluated at [facility] this morning. Patient denies complaints overnight and says he was able to sleep. Patient is getting out of bed and walking around the hospital floor without without walker and/or assistance. Patient admits to having a bowel movement. Patient otherwise denies dysuria, chest pain, shortness of breath, lower extremity numbness and/or tingling, palpitations, nausea, vomiting, and/or fever. Objective - Vital Signs/Intake and Output Vital Signs (last 24 hours): Temp Pulse Resp BP Pulse Ox 97.9 F 62 19 153/87 H 98 01/17/18 16:35 01/17/18 17:13 01/17/18 16:35 01/17/18 17:13 01/17/18 16:35 - Medications Medications: Current Medications Alprazolam (Xanax) 0.25 mg PO DAILY PRN; Protocol PRN Reason: agitation/restlessness Stop: 01/25/18 10:01 Last Admin: 01/18/18 02:24 Dose: 0.25 mg Aspirin (Ecotrin) 81 mg PO DAILY [facility] Last Admin: 07/20/18 10:18 Dose: 81 mg Clonidine HCl (Catapres) 0.1 mg PO Q6H PRN PRN Reason: Systolic Blood Pressure > 160 Last Admin: 01/16/18 22:59 Dose: 0.1 mg Cyanocobalamin (Vitamin B12 1000 Mcg Tab) 1,000 mcg PO DAILY [facility] Last Admin: 01/18/18 10:24 Dose: 1,000 mcg Enoxaparin Sodium (Lovenox) 40 mg SC DAILY [facility] PRN Reason: Protocol Last Admin: 01/18/18 10:21 Dose: 40 mg Folic Acid (Folic Acid) 1 mg PO DAILY [facility] Last Admin: 01/18/18 10:18 Dose: 1 mg Metoprolol Tartrate (Lopressor) 50 mg PO BID [facility] Last Admin: 01/18/18 10:19 Dose: 50 mg Multivitamins/Minerals (Therapeutic-M Tab) 1 tab PO 0800 [facility] Last Admin: 01/18/18 08:23 Dose: 1 tab Quetiapine Fumarate (Seroquel) 25 mg PO HS [facility] PRN Reason: Protocol Last Admin: 01/17/18 21:57 Dose: 25 mg Thiamine HCl (Vitamin B1 Tab) 100 mg PO TID [facility] Last Admin: 01/18/18 10:24 Dose: 100 mg - Labs Labs: 01/16/18 06:00 01/16/18 06:00 - Constitutional Appears: Non-toxic, No Acute Distress, Confused - Head Exam Head Exam: ATRAUMATIC, NORMAL INSPECTION, NORMOCEPHALIC - Eye Exam Eye Exam: EOMI, Normal appearance. absent: Conjunctival injection, Scleral icterus Pupil Exam: NORMAL ACCOMODATION - ENT Exam ENT Exam: Mucous Membranes Moist, Normal Exam - Neck Exam Neck Exam: Full ROM, Normal Inspection - Respiratory Exam Respiratory Exam: Clear to Ausculation Bilateral, NORMAL BREATHING PATTERN. absent: Prolonged Expiratory Phase, Wheezes, Respiratory Distress - Cardiovascular Exam Cardiovascular Exam: REGULAR RHYTHM. absent: Tachycardia, Diastolic murmur, Gallop - GI/Abdominal Exam GI & Abdominal Exam: Soft, Normal Bowel Sounds. absent: Tenderness - Extremities Exam Extremities Exam: Full ROM, Normal Inspection. absent: Pedal Edema - Back Exam Back Exam: NORMAL INSPECTION. absent: muscle spasm - Neurological Exam Neurological Exam: Alert, Awake (Oriented to person and current president), Normal Gait - Psychiatric Exam Psychiatric exam: Normal Affect, Normal Mood. absent: Agitated - Skin Skin Exam: Dry, Intact, Normal Color, Warm Assessment and Plan - Assessment and Plan (Free Text) Assessment: 82-year-old male with unknown past medical history who was found in front of his apartment building confused and unable to walk. Patient was found to have paroxysmal SVT was admitted to [facility], and subsequently downgraded to the medical floor. Delirium with underlying dementia, per neurology - Head CT without contrast on 01/11: no acute findings - Continue Seroquel 25mg PO HS, per psych - Continue 1:1 due to intermittent periods of agitation - Continue high fall risk protocol - Per Case Management, patient is pending placement for post acute nursing and rehab facility - Psychiatry consulted, recommendations appreciated - Neurology consulted, recommendations appreciated Paroxysmal SVT, resolved - Echo results, per report: Left ventricle (LV) ejection fraction 66%. LV normal size. Normal LV wall thickness. LV function is normal. Aortic valve is moderately calcified. Aortic sclerosis. - Nuclear stress test recommended once neurologically stable, per cardio - Continue with Metoprolol 50mg PO BID - Continue aspirin 81mg PO Daily - Cardiology consulted, appreciate recommendations Asymptomatic Anemia, trending up - Continue to monitor Essential Hypertension - Continue metoprolol 50mg PO BID, hold parameters - Continue Clonidine 0.1mg PO Q6H PRN, hold parameters - Heart Healthy Diet - Monitor Vitamin B12 deficiency - Continue B12 vitamin PO daily History of ETOH abuse - Continue thiamine 100mg PO TID - Continue folic acid 1mg PO Daily History of Tobacco use disorder - Patient advised to discontinue tobacco use and educated on risks of continued smoking DVT Prophylaxis - Lovenox 40mg SC Daily Patient was evaluated and case discussed in detail with Attending Physician Sisi No PGY1 <Daria Zhang R - Last Filed: 01/19/18 08:03> Objective - Vital Signs/Intake and Output Vital Signs (last 24 hours): Temp Pulse Resp BP Pulse Ox 99.5 F 59 L 20 158/85 H 98 01/18/18 16:26 01/18/18 16:26 01/18/18 16:26 01/18/18 17:34 01/18/18 16:26 - Medications Medications: Current Medications Alprazolam (Xanax) 0.25 mg PO DAILY PRN; Protocol PRN Reason: agitation/restlessness Stop: 01/25/18 10:01 Last Admin: 01/19/18 03:00 Dose: 0.25 mg Aspirin (Ecotrin) 81 mg PO DAILY [facility] Last Admin: 01/18/18 10:18 Dose: 81 mg Clonidine HCl (Catapres) 0.1 mg PO Q6H PRN PRN Reason: Systolic Blood Pressure > 160 Last Admin: 01/16/18 22:59 Dose: 0.1 mg Cyanocobalamin (Vitamin B12 1000 Mcg Tab) 1,000 mcg PO DAILY [facility] Last Admin: 01/18/18 10:24 Dose: 1,000 mcg Enoxaparin Sodium (Lovenox) 40 mg SC DAILY [facility] PRN Reason: Protocol Last Admin: 01/18/18 10:21 Dose: 40 mg Folic Acid (Folic Acid) 1 mg PO DAILY [facility] Last Admin: 01/18/18 10:18 Dose: 1 mg Metoprolol Tartrate (Lopressor) 50 mg PO BID [facility] Last Admin: 01/18/18 17:34 Dose: 50 mg Multivitamins/Minerals (Therapeutic-M Tab) 1 tab PO 0800 [facility] Last Admin: 01/18/18 08:23 Dose: 1 tab Quetiapine Fumarate (Seroquel) 25 mg PO HS [facility] PRN Reason: Protocol Last Admin: 01/18/18 21:20 Dose: Not Given Thiamine HCl (Vitamin B1 Tab) 100 mg PO TID [facility] Last Admin: 01/18/18 17:33 Dose: 100 mg - Labs Labs: 01/16/18 06:00 01/16/18 06:00 Attending/Attestation - Attestation I have personally seen and examined this patient.: Yes I have fully participated in the care of the patient.: Yes I have reviewed all pertinent clinical information, including history, physical exam and plan: Yes Notes (Text): Patient seen and examined by me at 10:45AM with resident 01/18/18. Case including HPI, physical exam, and physical assessment and plan discussed with resident. Agree with above with following additions/corrections. Patient states he is feeling pretty good. When asked what year this is, patient states that he does not care. Patient is oriented 1 today. Patient denies chest pain or shortness of breath. No abdominal pain, nausea, or vomiting. No fevers or chills. No headaches or dizziness. No dysuria. Unsure if review of systems are accurate secondary to confusion and dementia. Patient is on one-to- one. Physical exam: Gen: Awake and alert sitting up in chair in no acute distress HEENT: Normocephalic atraumatic. Extraocular muscles intact, pupils equal reactive. Oropharynx is pink and moist, no pharyngeal erythema or exudate appreciated. Neck is supple. Cardiovascular: Normal rhythm. Normal S1-S2. No murmurs, rubs, or gallops appreciated Pulmonary: Normal respiratory effort. No rhonchi, rales or wheezing appreciated. Gastrointestinal: Soft, nontender, nondistended, positive bowel sounds all 4 quadrants, no guarding Musculoskeletal: Moves all extremities, no calf tenderness Central nervous system: Oriented to self. With some confusion. Dermatologic: Skin warm and dry Assessment and plan: Patient is an 82-year-old male unknown past medical history is found in front of his apartment building confused and unable to walk. Patient found to have recurrent SVT and delirium. 1. 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 Waxes and wanes. Patient with intermittent confusion and agitation. Continue one to one. Continue Seroquel 25 mg at bedtime. Psychiatry following, recommendations appreciated. Continue with high risk fall protocol. Importance of supervision was discussed with patient's [id number] who stated he would be unable to provide supervision. Working with social work manager for discharge planning. 2. Paroxysmal SVT. With intermittent asymptomatic bradycardia. Patient in sinus rhythm. Cardiology following, recommendations appreciated. Continue with Lopressor 50mg twice a day. Continue Aspirin 81 mg daily. Recommends nuclear stress test when patient is neurologically stable. 2-D per housemaid shows a left ventricle of normal size and EF of 66% (please see official read for full details). 3. Essential hypertension. Continue Lopressor 50 mg BID. Continue clonidine 0.1 mg q6hrs prn systolic blood pressure greater than 160. 4. Vitamin B12 deficiency. Continue with oral supplement. 5. Anemia. H&H stable. No signs of active bleeding. Continue to monitor. 6. History of alcohol abuse. Continue thiamine, folic acid, and multivitamin. 7. GI and DVT prophylaxis. Protonix and Lovenox Case was discussed in detail with patient and medical appliance maker at bedside regarding current diagnosis and treatment plan
[2018-01-19] MEDS: Multivitamin With Minerals Tab PO SCH (08:57)
[2018-01-19] MEDS: Enoxaparin 40 mg Syringe SC SCH (09:00)
--- NOTE | 2018-01-19 12:02 | CP.PCM.PN ---
<Nelda Sorensen - Last Filed: 01/19/18 11:56> Subjective - Date & Time of Evaluation Date of Evaluation: 01/19/18 Time of Evaluation: 11:56 - Subjective Subjective: Nelda Sorensen PYG1 -- Gas Leak Inspector -- Medicine Progress Note Patient was seen and evaluated at [facility] this morning. Patient says he is doing well and that he is no pain. Patient denies complaints overnight and says he was able to sleep. Patient is getting out of bed and walking around the hospital floor without without walker and/or assistance. Patient admits to having a bowel movement. Patient otherwise denies dysuria, chest pain, shortness of breath, lower extremity numbness and/or tingling, palpitations, nausea, vomiting, and/or fever. Objective - Vital Signs/Intake and Output Vital Signs (last 24 hours): Temp Pulse Resp BP Pulse Ox 99.5 F 64 20 180/99 H 98 01/18/18 16:26 01/19/18 09:06 01/18/18 16:26 01/19/18 09:06 01/18/18 16:26 - Medications Medications: Current Medications Alprazolam (Xanax) 0.25 mg PO DAILY PRN; Protocol PRN Reason: agitation/restlessness Stop: 01/25/18 10:01 Last Admin: 01/19/18 03:00 Dose: 0.25 mg Aspirin (Ecotrin) 81 mg PO DAILY [facility] Last Admin: 01/19/18 09:00 Dose: 81 mg Clonidine HCl (Catapres) 0.1 mg PO Q6H PRN PRN Reason: Systolic Blood Pressure > 160 Last Admin: 01/19/18 09:06 Dose: 0.1 mg Cyanocobalamin (Vitamin B12 1000 Mcg Tab) 1,000 mcg PO DAILY [facility] Last Admin: 01/19/18 08:59 Dose: 1,000 mcg Enoxaparin Sodium (Lovenox) 40 mg SC DAILY [facility] PRN Reason: Protocol Last Admin: 01/19/18 09:00 Dose: 40 mg Folic Acid (Folic Acid) 1 mg PO DAILY [facility] Last Admin: 01/19/18 08:59 Dose: 1 mg Metoprolol Tartrate (Lopressor) 50 mg PO BID [facility] Last Admin: 01/19/18 09:02 Dose: 50 mg Multivitamins/Minerals (Therapeutic-M Tab) 1 tab PO 0800 [facility] Last Admin: 01/19/18 08:57 Dose: 1 tab Quetiapine Fumarate (Seroquel) 25 mg PO HS [facility] PRN Reason: Protocol Last Admin: 01/18/18 21:20 Dose: Not Given Thiamine HCl (Vitamin B1 Tab) 100 mg PO TID [facility] Last Admin: 01/19/18 09:00 Dose: 100 mg - Labs Labs: 01/16/18 06:00 01/16/18 06:00 - Constitutional Appears: Non-toxic, No Acute Distress - Head Exam Head Exam: ATRAUMATIC, NORMAL INSPECTION, NORMOCEPHALIC - Eye Exam Eye Exam: EOMI, Normal appearance - ENT Exam ENT Exam: Mucous Membranes Moist, Normal Exam - Neck Exam Neck Exam: Normal Inspection - Respiratory Exam Respiratory Exam: Clear to Ausculation Bilateral, NORMAL BREATHING PATTERN. absent: Decreased Breath Sounds, Wheezes, Respiratory Distress - Cardiovascular Exam Cardiovascular Exam: RRR. absent: Gallop, Murmur - GI/Abdominal Exam GI & Abdominal Exam: Soft, Normal Bowel Sounds. absent: Tenderness - Extremities Exam Extremities Exam: Normal Inspection. absent: Calf Tenderness, Pedal Edema - Back Exam Back Exam: NORMAL INSPECTION - Neurological Exam Neurological Exam: Alert, Awake, Normal Gait Additional comments: Patient is oriented to self only. Patient is not oriented to place or date. - Psychiatric Exam Psychiatric exam: Normal Affect, Normal Mood. absent: Agitated, Anxious - Skin Skin Exam: Dry, Intact, Normal Color, Warm Assessment and Plan - Assessment and Plan (Free Text) Assessment: 82-year-old male with unknown past medical history who was found in front of his apartment building confused and unable to walk. Patient was found to have paroxysmal SVT was admitted to [facility], and subsequently downgraded to the medical floor. Delirium with underlying dementia, per neurology - Head CT without contrast on 01/11: no acute findings - Continue Seroquel 25mg PO HS, per psych - Continue 1:1 due to intermittent periods of agitation - Continue high fall risk protocol - Per psych, patient requires assistance with administrating medications, thus it is unsafe to discharge patient without assistance - Case Management and Production Floater consulted, will follow-up regarding placement - Psychiatry consulted, recommendations appreciated - Neurology consulted, recommendations appreciated Paroxysmal SVT, resolved - Echo results, per report: Left ventricle (LV) ejection fraction 66%. LV normal size. Normal LV wall thickness. LV function is normal. Aortic valve is moderately calcified. Aortic sclerosis. - Nuclear stress test recommended once neurologically stable, per cardio - Continue with Metoprolol 50mg PO BID - Continue aspirin 81mg PO Daily - Cardiology consulted, appreciate recommendations Asymptomatic Anemia, trending up - Continue to monitor Essential Hypertension - Continue metoprolol 50mg PO BID, hold parameters - Continue Clonidine 0.1mg PO Q6H PRN, hold parameters - Heart Healthy Diet - Monitor Vitamin B12 deficiency - Continue B12 vitamin PO daily History of ETOH abuse - Continue thiamine 100mg PO TID - Continue folic acid 1mg PO Daily History of Tobacco use disorder - Patient advised to discontinue tobacco use and educated on risks of continued smoking DVT Prophylaxis - Lovenox 40mg SC Daily Patient was evaluated and case discussed in detail with Attending Physician Sisi No PGY1 <Daria Zhang R - Last Filed: 01/19/18 13:59> Objective - Vital Signs/Intake and Output Vital Signs (last 24 hours): Temp Pulse Resp BP Pulse Ox 99.5 F 64 20 180/99 H 98 01/18/18 16:26 01/19/18 09:06 01/18/18 16:26 01/19/18 09:06 01/18/18 16:26 - Medications Medications: Current Medications Alprazolam (Xanax) 0.25 mg PO DAILY PRN; Protocol PRN Reason: agitation/restlessness Stop: 01/25/18 10:01 Last Admin: 01/19/18 03:00 Dose: 0.25 mg Aspirin (Ecotrin) 81 mg PO DAILY [facility] Last Admin: 01/19/18 09:00 Dose: 81 mg Clonidine HCl (Catapres) 0.1 mg PO Q6H PRN PRN Reason: Systolic Blood Pressure > 160 Last Admin: 01/19/18 09:06 Dose: 0.1 mg Cyanocobalamin (Vitamin B12 1000 Mcg Tab) 1,000 mcg PO DAILY [facility] Last Admin: 01/19/18 08:59 Dose: 1,000 mcg Enoxaparin Sodium (Lovenox) 40 mg SC DAILY [facility] PRN Reason: Protocol Last Admin: 01/19/18 09:00 Dose: 40 mg Folic Acid (Folic Acid) 1 mg PO DAILY [facility] Last Admin: 01/19/18 08:59 Dose: 1 mg Metoprolol Tartrate (Lopressor) 50 mg PO BID [facility] Last Admin: 01/19/18 09:02 Dose: 50 mg Multivitamins/Minerals (Therapeutic-M Tab) 1 tab PO 0800 [facility] Last Admin: 01/19/18 08:57 Dose: 1 tab Quetiapine Fumarate (Seroquel) 25 mg PO HS [facility] PRN Reason: Protocol Last Admin: 01/18/18 21:20 Dose: Not Given Thiamine HCl (Vitamin B1 Tab) 100 mg PO TID [facility] Last Admin: 01/19/18 09:00 Dose: 100 mg - Labs Labs: 01/16/18 06:00 01/16/18 06:00 Attending/Attestation - Attestation I have personally seen and examined this patient.: Yes I have fully participated in the care of the patient.: Yes I have reviewed all pertinent clinical information, including history, physical exam and plan: Yes Notes (Text): Patient seen and examined by me at 08:45AM with resident. Case including HPI, physical exam, and physical assessment and plan discussed with resident. Agree with above with following additions/corrections. Patient states he is feeling well. Eating well. Patient is oriented x 1. Unsure of where he is today. Patient denies abdominal pain, nausea, or vomiting. No chest pain or shortness of breath. No headaches or dizziness. No fevers or chills. No dysuria. Patient is ambulating well. Patient is on one-to-one. Unsure if review of systems are accurate secondary to confusion and dementia. Physical exam: Gen: Awake and alert sitting up in chair in no acute distress HEENT: Normocephalic atraumatic. Extraocular muscles intact, pupils equal reactive. Oropharynx is pink and moist, no pharyngeal erythema or exudate appreciated. Neck is supple. Cardiovascular: Normal rhythm. Normal S1-S2. No murmurs, rubs, or gallops appreciated Pulmonary: Normal respiratory effort. No rhonchi, rales or wheezing appreciated. Gastrointestinal: Soft, nontender, nondistended, positive bowel sounds all 4 quadrants, no guarding Musculoskeletal: Moves all extremities, no calf tenderness Central nervous system: Oriented to self. With some confusion. Dermatologic: Skin warm and dry Assessment and plan: Patient is an 82-year-old male unknown past medical history is found in front of his apartment building confused and unable to walk. Patient found to have recurrent SVT and delirium. 1. 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 Waxes and wanes. Patient with intermittent confusion and agitation. Continue Seroquel 25 mg at bedtime. Continue one to one. Psychiatry following, recommendations appreciated. Continue with high risk fall protocol. Importance of supervision was discussed with patient's [id number] who stated he would be unable to provide supervision. Will need to continue to work with high school social science teacher for discharge planning. 2. Paroxysmal SVT. Now in sinus rhythm. Intermittent asymptomatic bradycardia. Continue with Lopressor 50mg twice a day. Continue Aspirin 81 mg daily. Recommends nuclear stress test when patient is neurologically stable. 2-D per child and adolescent psychologist shows a left ventricle of normal size and EF of 66% (please see official read for full details). Cardiology following, recommendations appreciated. 3. Essential hypertension. Continue Lopressor 50 mg BID. Continue clonidine 0.1 mg q6hrs prn systolic blood pressure greater than 160. 4. Vitamin B12 deficiency. Continue with oral B12 supplement. 5. Anemia. H&H stable. No signs of active bleeding. Patient asymptomatic 6. History of alcohol abuse. Continue thiamine, folic acid, and multivitamin. 7. GI and DVT prophylaxis. Protonix and Lovenox Case was discussed in detail with patient and medical technologist generalist at bedside regarding current diagnosis and treatment plan
[2018-01-20 07:47] LABS: ALB/GLOB RATIO 1.4 (1.1-1.8); ALBUMIN 3.8 g/dL (3.0-4.8); ALT/SGPT 27 U/L (7-56); AST/SGOT 31 U/L (17-59); BLOOD UREA NITROGEN 22 mg/dL (7-21); CALCIUM 8.9 mg/dL (8.4-10.5); GFR AFRICAN-AMERICAN > 60; GFR NON-AFRICAN AMERICAN > 60
[2018-01-20 08:15] LABS: BASO # 0.01 K/mm3 (0.0-2.0); BASO % 0.2 % (0.0-3.0); EOS # 0.1 (0.0-0.7); EOS % 2.3 % (1.5-5.0); GRAN # 3.82 (1.4-6.5); GRAN % 62.4 % (50.0-68.0); HEMOGLOBIN 11.4 g/dL (14.0-18.0); LYMPH # 1.4 (1.2-3.4); LYMPH % 22.7 % (22.0-35.0); MEAN CELL VOLUME 94.3 fl (80.0-105.0); MEAN CORPUSCULAR HEMOGLOBIN 31.1 pg (25.0-35.0); MEAN PLATELET VOLUME 9.7 fl (7.0-11.0); MONO # 0.8 (0.1-0.6); MONO % 12.4 % (1.0-6.0); RBC 3.66 10^6/uL (3.5-6.1); RED CELL DISTRIBUTION WIDTH 13.4 % (11.5-14.5); WHITE BLOOD COUNT 6.1 10^3/ul (4.5-11.0)
--- NOTE | 2018-01-20 10:28 | CP.PCM.PN ---
Subjective - Date & Time of Evaluation Date of Evaluation: 01/20/18 Time of Evaluation: 10:20 - Subjective Subjective: Victorino Chilel was called to evaluate pt from eloping from room and running toward the elevator to escape. Pt has hx of dementia as per staff and is on Seroquel and Ativan. Pt stated "I want to go to [facility]". Pastoral staff member on floor approached patient, patient agreed to talk with pastoral staff member and walked with him back to his room on the floor. hourly sales staff stated that Dr. Mcnally ( Psych) is currently consulted on case. Pt appeared calm after interaction with pastoral staff member. Instructed staff to contact Dr. Mcnally for further titration of psychiatric medications. Pt seen with senior resident Dr. Gandara, PGY-2. Further management as per primary team. Objective - Vital Signs/Intake and Output Vital Signs (last 24 hours): Temp Pulse Resp BP Pulse Ox 98.0 F 53 L 20 163/87 H 98 01/20/18 08:53 01/20/18 08:53 01/20/18 08:53 01/20/18 08:53 01/20/18 08:53 Intake and Output: 01/20/18 01/20/18 06:59 18:59 Intake Total 300 Balance 300 - Medications Medications: Current Medications Alprazolam (Xanax) 0.25 mg PO DAILY PRN; Protocol PRN Reason: agitation/restlessness Stop: 01/25/18 10:01 Last Admin: 01/20/18 10:08 Dose: 0.25 mg Aspirin (Ecotrin) 81 mg PO DAILY [facility] Last Admin: 01/19/18 09:00 Dose: 81 mg Clonidine HCl (Catapres) 0.1 mg PO Q6H PRN PRN Reason: Systolic Blood Pressure > 160 Last Admin: 01/19/18 09:06 Dose: 0.1 mg Cyanocobalamin (Vitamin B12 1000 Mcg Tab) 1,000 mcg PO DAILY [facility] Last Admin: 01/19/18 08:59 Dose: 1,000 mcg Folic Acid (Folic Acid) 1 mg PO DAILY [facility] Last Admin: 01/19/18 08:59 Dose: 1 mg Metoprolol Tartrate (Lopressor) 50 mg PO BID [facility] Last Admin: 01/19/18 17:19 Dose: 50 mg Multivitamins/Minerals (Therapeutic-M Tab) 1 tab PO 0800 [facility] Last Admin: 01/19/18 08:57 Dose: 1 tab Quetiapine Fumarate (Seroquel) 25 mg PO HS [facility] PRN Reason: Protocol Last Admin: 01/19/18 21:22 Dose: 25 mg Thiamine HCl (Vitamin B1 Tab) 100 mg PO TID [facility] Last Admin: 01/19/18 17:19 Dose: 100 mg - Labs Labs: 01/20/18 07:30 01/20/18 07:00
[2018-01-20] MEDS: Multivitamin With Minerals Tab PO SCH (11:04)
[2018-01-20] MEDS: Enoxaparin 40 mg Syringe SC SCH (11:04)
--- NOTE | 2018-01-20 11:51 | CP.PCM.PCO ---
Physician Communication Note - Physician Communication Note Physician Communication Note: RN contacted this senior writer for meds, vanessa acosta, will f/u tomorrow
--- NOTE | 2018-01-20 18:46 | CP.PCM.PN ---
<Nelda Sorensen - Last Filed: 01/20/18 18:43> Subjective - Date & Time of Evaluation Date of Evaluation: 01/20/18 Time of Evaluation: 10:30 - Subjective Subjective: Nelda Sorensen PYG1 -- Development Intern -- Medicine Progress Note Patient was seen and evaluated at [facility] this morning. Patient says he is doing well and that he is no pain. Patient denies complaints overnight and says he was able to sleep. Patient stated he wanted to "go to [facility]." Patient admits to having a bowel movement. Patient otherwise denies dysuria, chest pain, shortness of breath, lower extremity numbness and/or tingling, palpitations, nausea, vomiting, and/or fever. Objective - Vital Signs/Intake and Output Vital Signs (last 24 hours): Temp Pulse Resp BP Pulse Ox 98.8 F 76 20 151/77 H 97 01/20/18 17:28 01/20/18 17:28 01/20/18 17:28 01/20/18 17:28 01/20/18 17:28 Intake and Output: 01/20/18 01/20/18 06:59 18:59 Intake Total 300 Balance 300 - Medications Medications: Current Medications Alprazolam (Xanax) 0.25 mg PO DAILY PRN; Protocol PRN Reason: agitation/restlessness Stop: 01/25/18 10:01 Last Admin: 01/20/18 10:08 Dose: 0.25 mg Aspirin (Ecotrin) 81 mg PO DAILY [facility] Last Admin: 01/20/18 11:03 Dose: Not Given Clonidine HCl (Catapres) 0.1 mg PO Q6H PRN PRN Reason: Systolic Blood Pressure > 160 Last Admin: 01/19/18 09:06 Dose: 0.1 mg Cyanocobalamin (Vitamin B12 1000 Mcg Tab) 1,000 mcg PO DAILY [facility] Last Admin: 01/20/18 11:04 Dose: Not Given Folic Acid (Folic Acid) 1 mg PO DAILY [facility] Last Admin: 01/20/18 11:03 Dose: Not Given Metoprolol Tartrate (Lopressor) 50 mg PO BID [facility] Last Admin: 01/20/18 17:23 Dose: 50 mg Multivitamins/Minerals (Therapeutic-M Tab) 1 tab PO 0800 [facility] Last Admin: 01/20/18 11:04 Dose: Not Given Quetiapine Fumarate (Seroquel) 25 mg PO [facility] PRN Reason: Protocol Thiamine HCl (Vitamin B1 Tab) 100 mg PO TID [facility] Last Admin: 01/20/18 17:23 Dose: 100 mg - Labs Labs: 01/20/18 07:30 01/20/18 07:00 - Constitutional Appears: Non-toxic, No Acute Distress, Confused - Head Exam Head Exam: ATRAUMATIC, NORMAL INSPECTION, NORMOCEPHALIC - Eye Exam Eye Exam: EOMI, Normal appearance - ENT Exam ENT Exam: Mucous Membranes Moist, Normal Exam - Neck Exam Neck Exam: Normal Inspection - Respiratory Exam Respiratory Exam: Clear to Ausculation Bilateral, NORMAL BREATHING PATTERN - Cardiovascular Exam Cardiovascular Exam: REGULAR RHYTHM. absent: Tachycardia, Diastolic murmur, Murmur - GI/Abdominal Exam GI & Abdominal Exam: Soft, Normal Bowel Sounds. absent: Tenderness - Extremities Exam Extremities Exam: Full ROM, Normal Inspection - Back Exam Back Exam: NORMAL INSPECTION. absent: paraspinal tenderness - Neurological Exam Neurological Exam: Alert, Awake, Normal Gait Additional comments: Oriented to self only - Psychiatric Exam Psychiatric exam: Normal Affect, Normal Mood Assessment and Plan - Assessment and Plan (Free Text) Assessment: 82-year-old male with unknown past medical history who was found in front of his apartment building confused and unable to walk. Patient was found to have paroxysmal SVT was admitted to [facility], and subsequently downgraded to the medical floor. Delirium with underlying dementia, per neurology - Head CT without contrast on 01/11: no acute findings - Alprazolam 0.25mg PO Van PRN - administered today - Continue Seroquel 25mg PO HS, pending psych re-evaluation - Continue 1:1 due to intermittent periods of agitation and confusion - Continue high fall risk protocol - Per psych, patient requires assistance with administrating medications, thus it is unsafe to discharge patient without assistance - Case Management and Drawer Upfitter consulted, will follow-up regarding placement - Psychiatry consulted, recommendations appreciated - Neurology consulted, recommendations appreciated Paroxysmal SVT, resolved - Echo results, per report: Left ventricle (LV) ejection fraction 66%. LV normal size. Normal LV wall thickness. LV function is normal. Aortic valve is moderately calcified. Aortic sclerosis. - Nuclear stress test recommended once neurologically stable, per cardio - Continue with Metoprolol 50mg PO BID - Continue aspirin 81mg PO Daily - today, patient refused - Cardiology consulted, appreciate recommendations Asymptomatic Anemia, trending up - Continue to monitor Essential Hypertension - Continue metoprolol 50mg PO BID, hold parameters - Continue Clonidine 0.1mg PO Q6H PRN, hold parameters - Heart Healthy Diet - Monitor Vitamin B12 deficiency - Continue B12 vitamin PO daily - today, patient refused History of ETOH abuse - Continue thiamine 100mg PO TID - today, patient refused - Continue folic acid 1mg PO Daily - today, patient refused History of Tobacco use disorder - Patient advised to discontinue tobacco use and educated on risks of continued smoking DVT Prophylaxis - Lovenox 40mg SC Daily Patient was evaluated and case discussed in detail with Attending Physician Sisi No PGY1 <Daria Zhang - Last Filed: 01/20/18 20:26> Objective - Vital Signs/Intake and Output Vital Signs (last 24 hours): Temp Pulse Resp BP Pulse Ox 98.8 F 76 20 151/77 H 97 01/20/18 17:28 01/20/18 17:28 01/20/18 17:28 01/20/18 17:28 01/20/18 17:28 - Medications Medications: Current Medications Alprazolam (Xanax) 0.25 mg PO DAILY PRN; Protocol PRN Reason: agitation/restlessness Stop: 01/25/18 10:01 Last Admin: 01/20/18 10:08 Dose: 0.25 mg Aspirin (Ecotrin) 81 mg PO DAILY [facility] Last Admin: 01/20/18 11:03 Dose: Not Given Clonidine HCl (Catapres) 0.1 mg PO Q6H PRN PRN Reason: Systolic Blood Pressure > 160 Last Admin: 01/19/18 09:06 Dose: 0.1 mg Cyanocobalamin (Vitamin B12 1000 Mcg Tab) 1,000 mcg PO DAILY [facility] Last Admin: 01/20/18 11:04 Dose: Not Given Folic Acid (Folic Acid) 1 mg PO DAILY [facility] Last Admin: 01/20/18 11:03 Dose: Not Given Metoprolol Tartrate (Lopressor) 50 mg PO BID [facility] Last Admin: 01/20/18 17:23 Dose: 50 mg Multivitamins/Minerals (Therapeutic-M Tab) 1 tab PO 0800 [facility] Last Admin: 01/20/18 11:04 Dose: Not Given Quetiapine Fumarate (Seroquel) 25 mg PO [facility] PRN Reason: Protocol Thiamine HCl (Vitamin B1 Tab) 100 mg PO TID [facility] Last Admin: 01/20/18 17:23 Dose: 100 mg - Labs Labs: 01/20/18 07:30 01/20/18 07:00 Attending/Attestation - Attestation I have personally seen and examined this patient.: Yes I have fully participated in the care of the patient.: Yes I have reviewed all pertinent clinical information, including history, physical exam and plan: Yes Notes (Text): Patient seen and examined by me at 09:15AM with resident. Case including HPI, physical exam, and physical assessment and plan discussed with resident. Agree with above with following additions/corrections. Patient states he is feeling ok. States he is going to [facility]. Patient is oriented x 1. Denies chest pain or shortness of breath. No abdominal pain, nausea, or vomiting. No headaches or dizziness. No fevers or chills. No dysuria. Patient is ambulating well. Patient is on one-to-one. Unsure if review of systems are accurate secondary to confusion and dementia. Physical exam: Gen: Awake and alert sitting up in chair in no acute distress HEENT: Normocephalic atraumatic. Extraocular muscles intact, pupils equal reactive. Oropharynx is pink and moist, no pharyngeal erythema or exudate appreciated. Neck is supple. Cardiovascular: Normal rhythm. Normal S1-S2. No murmurs, rubs, or gallops appreciated Pulmonary: Normal respiratory effort. No rhonchi, rales or wheezing appreciated. Gastrointestinal: Soft, nontender, nondistended, positive bowel sounds all 4 quadrants, no guarding Musculoskeletal: Moves all extremities, no calf tenderness Central nervous system: Oriented to self. With some confusion. Dermatologic: Skin warm and dry Assessment and plan: Patient is an 82-year-old male unknown past medical history is found in front of his apartment building confused and unable to walk. Patient found to have recurrent SVT and delirium. 1. 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 Waxes and wanes. Patient with intermittent confusion and agitation. Seroquel increased to 25mg PO BID today secondary to confusion earlier today by psychiatrist. Continue one to one. Psychiatry following, recommendations appreciated. Continue with high risk fall protocol. Importance of supervision was discussed with patient's [id number] who stated he would be unable to provide supervision. Will need to continue to work with social media senior associate for discharge planning. 2. Paroxysmal SVT. Now in sinus rhythm. Intermittent asymptomatic bradycardia. Continue with Lopressor 50mg twice a day. Continue Aspirin 81 mg daily. Recommends nuclear stress test when patient is neurologically stable. 2-D per [facility] shows a left ventricle of normal size and EF of 66% (please see official read for full details). Cardiology following, recommendations appreciated. 3. Essential hypertension. Continue Lopressor 50 mg BID. Continue clonidine 0.1 mg q6hrs prn systolic blood pressure greater than 160. 4. Vitamin B12 deficiency. Continue with oral B12 supplement. 5. Anemia. H&H stable. No signs of active bleeding. Patient asymptomatic 6. History of alcohol abuse. Continue thiamine, folic acid, and multivitamin. 7. GI and DVT prophylaxis. Protonix and Lovenox Case was discussed in detail with patient and medical and health services manager at bedside regarding current diagnosis and treatment plan
[2018-01-21 07:14] LABS: BASO # 0.02 K/mm3 (0.0-2.0); BASO % 0.3 % (0.0-3.0); EOS # 0.2 (0.0-0.7); EOS % 2.3 % (1.5-5.0); GRAN # 4.54 (1.4-6.5); GRAN % 64.9 % (50.0-68.0); HEMOGLOBIN 11.2 g/dL (14.0-18.0); LYMPH # 1.6 (1.2-3.4); LYMPH % 23.3 % (22.0-35.0); MEAN CELL VOLUME 94.7 fl (80.0-105.0); MEAN CORPUSCULAR HGB CONC 32.7 g/dl (31.0-37.0); MEAN PLATELET VOLUME 9.1 fl (7.0-11.0); MONO # 0.6 (0.1-0.6); MONO % 9.2 % (1.0-6.0); RBC 3.61 10^6/uL (3.5-6.1); RED CELL DISTRIBUTION WIDTH 13.4 % (11.5-14.5)
[2018-01-21 07:37] LABS: ALB/GLOB RATIO 1.4 (1.1-1.8); ALBUMIN 3.7 g/dL (3.0-4.8); ALT/SGPT 23 U/L (7-56); AST/SGOT 18 U/L (17-59); BLOOD UREA NITROGEN 23 mg/dL (7-21); CALCIUM 8.6 mg/dL (8.4-10.5); GFR AFRICAN-AMERICAN > 60; GFR NON-AFRICAN AMERICAN > 60
[2018-01-21] MEDS: Multivitamin With Minerals Tab PO SCH (09:56)
--- NOTE | 2018-01-21 14:03 | CP.PCM.PN ---
<Guillermo Zavaleta - Last Filed: 01/21/18 14:08> Subjective - Date & Time of Evaluation Date of Evaluation: 01/21/18 Time of Evaluation: 14:02 - Subjective Subjective: Guillermo Zavaleta D.O PGY-1, Internal Medicine progress note for Dr. Mckeon Patient was examined at bedside, no acute overnight events. Patient offers no new complaints at this time. Denies fevers, chills, chest pain, shortness of breath, abdominal pain, N/V/D. Objective - Vital Signs/Intake and Output Vital Signs (last 24 hours): Temp Pulse Resp BP Pulse Ox 98 F 60 20 150/70 98 01/21/18 08:16 01/21/18 09:56 01/21/18 08:16 01/21/18 09:56 01/21/18 08:16 Intake and Output: 01/21/18 01/21/18 06:59 18:59 Intake Total 120 Output Total 4 Balance 116 - Medications Medications: Current Medications Alprazolam (Xanax) 0.25 mg PO DAILY PRN; Protocol PRN Reason: agitation/restlessness Stop: 01/25/18 10:01 Last Admin: 01/20/18 10:08 Dose: 0.25 mg Aspirin (Ecotrin) 81 mg PO DAILY [facility] Last Admin: 01/21/18 09:55 Dose: 81 mg Clonidine HCl (Catapres) 0.1 mg PO Q6H PRN PRN Reason: Systolic Blood Pressure > 160 Last Admin: 01/19/18 09:06 Dose: 0.1 mg Cyanocobalamin (Vitamin B12 1000 Mcg Tab) 1,000 mcg PO DAILY [facility] Last Admin: 01/21/18 09:56 Dose: 1,000 mcg Folic Acid (Folic Acid) 1 mg PO DAILY [facility] Last Admin: 01/21/18 09:56 Dose: 1 mg Metoprolol Tartrate (Lopressor) 50 mg PO BID [facility] Last Admin: 01/21/18 09:56 Dose: 50 mg Multivitamins/Minerals (Therapeutic-M Tab) 1 tab PO 0800 [facility] Last Admin: 01/21/18 09:56 Dose: 1 tab Quetiapine Fumarate (Seroquel) 25 mg PO AMHS [facility] PRN Reason: Protocol Last Admin: 01/21/18 09:56 Dose: 25 mg Thiamine HCl (Vitamin B1 Tab) 100 mg PO TID GARCÍA Last Admin: 01/21/18 09:55 Dose: 100 mg - Labs Labs: 01/21/18 07:00 01/21/18 07:00 - Constitutional Appears: No Acute Distress - Head Exam Head Exam: ATRAUMATIC, NORMAL INSPECTION - Eye Exam Eye Exam: Normal appearance - ENT Exam ENT Exam: Mucous Membranes Moist - Respiratory Exam Respiratory Exam: Clear to Ausculation Bilateral. absent: Rales, Rhonchi, Wheezes - Cardiovascular Exam Cardiovascular Exam: REGULAR RHYTHM, +S1, +S2. absent: Gallop, Rubs, Murmur - GI/Abdominal Exam GI & Abdominal Exam: Soft, Normal Bowel Sounds. absent: Tenderness - Extremities Exam Extremities Exam: absent: Calf Tenderness, Pedal Edema - Neurological Exam Neurological Exam: Alert, Awake - Psychiatric Exam Psychiatric exam: Normal Affect, Normal Mood - Skin Skin Exam: Dry, Normal Color Assessment and Plan - Assessment and Plan (Free Text) Assessment: 82-year-old male with unknown past medical history who was found in front of his apartment building confused and unable to walk. Patient was admitted for paroxysmal SVT and delirium. Plan: Delirium with underlying dementia, per neurology - Head CT without contrast on 01/11: no acute findings - Alprazolam 0.25mg PO Van PRN - Continue Seroquel 25mg PO HS - Discontinued 1:1, will observe behavior today - Continue moderate fall risk protocol - Case Management and Education Reporter consulted, called [id number], he will try to pick him up in the morning - Psychiatry consulted - Neurology consulted Paroxysmal SVT, resolved - Echo (01/14): Left ventricle (LV) ejection fraction 66%. LV normal size, thickness, and function. Aortic valve is moderately calcified. Aortic sclerosis. - Nuclear stress test recommended once neurologically stable, per cardio - Continue with Metoprolol 50mg PO BID - Continue aspirin 81mg PO Daily - today, patient refused - Cardiology consulted Asymptomatic Anemia - Continue to monitor Essential Hypertension - Continue metoprolol 50mg PO BID, hold parameters - Continue Clonidine 0.1mg PO Q6H PRN, hold parameters - Heart Healthy Diet Vitamin B12 deficiency - Continue B12 vitamin PO daily History of ETOH abuse - Continue thiamine 100mg PO TID - Continue folic acid 1mg PO Daily History of Tobacco use disorder - Patient advised to discontinue tobacco use and educated on risks of continued smoking DVT Prophylaxis - SCD's Patient was evaluated and case discussed in detail with Attending Physician Dr. Mckeon <Eloisa Mckeon - Last Filed: 01/22/18 12:36> Objective - Vital Signs/Intake and Output Vital Signs (last 24 hours): Temp Pulse Resp BP Pulse Ox 97.7 F 57 L 20 162/84 H 98 01/22/18 07:30 01/22/18 10:13 01/22/18 07:30 01/22/18 10:13 01/22/18 07:30 Intake and Output: 01/22/18 01/22/18 06:59 18:59 Intake Total 960 Balance 960 - Medications Medications: Current Medications Alprazolam (Xanax) 0.25 mg PO DAILY PRN; Protocol PRN Reason: agitation/restlessness Stop: 01/25/18 10:01 Last Admin: 01/21/18 20:59 Dose: 0.25 mg Aspirin (Ecotrin) 81 mg PO DAILY [facility] Last Admin: 01/22/18 10:13 Dose: 81 mg Clonidine HCl (Catapres) 0.1 mg PO Q6H PRN PRN Reason: Systolic Blood Pressure > 160 Last Admin: 01/22/18 08:27 Dose: 0.1 mg Cyanocobalamin (Vitamin B12 1000 Mcg Tab) 1,000 mcg PO DAILY [facility] Last Admin: 01/22/18 10:13 Dose: 1,000 mcg Folic Acid (Folic Acid) 1 mg PO DAILY [facility] Last Admin: 01/22/18 10:14 Dose: 1 mg Metoprolol Tartrate (Lopressor) 50 mg PO BID [facility] Last Admin: 01/22/18 10:13 Dose: 50 mg Multivitamins/Minerals (Therapeutic-M Tab) 1 tab PO 0800 [facility] Last Admin: 01/22/18 10:13 Dose: 1 tab Quetiapine Fumarate (Seroquel) 25 mg PO AMHS [facility] PRN Reason: Protocol Last Admin: 01/22/18 10:13 Dose: 25 mg Thiamine HCl (Vitamin B1 Tab) 100 mg PO TID [facility] Last Admin: 01/22/18 10:13 Dose: 100 mg - Labs Labs: 01/21/18 07:00 01/21/18 07:00 Attending/Attestation - Attestation I have personally seen and examined this patient.: Yes I have fully participated in the care of the patient.: Yes I have reviewed all pertinent clinical information, including history, physical exam and plan: Yes Notes (Text): 01/22/18 12:34 Attending note; Patient seen and examined with resident. Patient is a 82 year old [place] male with unknown past medical history and no out-patient follow-up who was found in front of his apartment building, said to be confused and unable to walk. Patient had episodes of SVT during admission. currently in normal sinus rhythm. Continue metoprolol. Cardiology evaluation appreciated. Cardiac enzymes 3 negative. Patient is alert and awake. Oriented to place. CT head is negative for acute infarct. Neurology evaluation appreciated. Possible dementia. 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 B12 deficiency; started on vitamin B12. History of alcohol abuse in the past; started on thiamine, multivitamin, folic acid. Psychiatric evaluation appreciated; started on Seroquel for mood control. Monitor closely. Case discussed with social services designee for discharge planning. Visiting nurse services arranged. Patient will go to [facility]. Case discussed with patient's brother in law in detail. Possible discharge home tomorrow with family with close outpatient follow-up. The diagnosis, follow-up plan discussed with family in detail. Patient will be referred to [facility] upon discharge.
[2018-01-22 08:29] VITALS: BP 162/84; PULSE 57
[2018-01-22 10:09] VITALS: RESP 20; TEMP 97.7; O2SAT 98
[2018-01-22] MEDS: Multivitamin With Minerals Tab PO SCH (10:13)
--- NOTE | 2018-01-22 11:41 | CP.PCM.DIS ---
<Guillermo Zavaleta - Last Filed: 01/22/18 17:00> Provider - Provider Date of Admission: 01/14/18 13:54 Attending physician: Eloisa Mckeon MD Time Spent in preparation of Discharge (in minutes): 45 Diagnosis - Discharge Diagnosis (1) Dementia Status: Chronic Priority: Medium (2) Delirium Status: Resolved Priority: Medium (3) Anemia Status: Acute (4) Hypertension Status: Chronic Priority: Medium (5) History of alcohol abuse Status: Chronic Priority: Medium (6) History of tobacco abuse Status: Chronic Priority: Medium (7) Altered mental status Status: Resolved Priority: Medium (8) SVT (supraventricular tachycardia) Status: Resolved Priority: Medium Hospital Course - Lab Results Lab Results: Most Recent Lab Values WBC 7.0 10^3/ul (4.5-11.0) 01/21/18 07:00 RBC 3.61 10^6/uL (3.5-6.1) 01/21/18 07:00 Hgb 11.2 g/dL (14.0-18.0) L 01/21/18 07:00 Hct 34.2 % (42.0-52.0) L 01/21/18 07:00 MCV 94.7 fl (80.0-105.0) 01/21/18 07:00 MCH 31.0 pg (25.0-35.0) 01/21/18 07:00 MCHC 32.7 g/dl (31.0-37.0) 01/21/18 07:00 RDW 13.4 % (11.5-14.5) 01/21/18 07:00 Plt Count 273 10^3/uL (120.0-450.0) 01/21/18 07:00 MPV 9.1 fl (7.0-11.0) 01/21/18 07:00 Gran % 64.9 % (50.0-68.0) 01/21/18 07:00 Lymph % (Auto) 23.3 % (22.0-35.0) 01/21/18 07:00 [place] % (Auto) 9.2 % (1.0-6.0) H 01/21/18 07:00 Eos % (Auto) 2.3 % (1.5-5.0) 01/21/18 07:00 Baso % (Auto) 0.3 % (0.0-3.0) 01/21/18 07:00 Gran # 4.54 (1.4-6.5) 01/21/18 07:00 Lymph # (Auto) 1.6 (1.2-3.4) 01/21/18 07:00 [place] # (Auto) 0.6 (0.1-0.6) 01/21/18 07:00 Eos # (Auto) 0.2 (0.0-0.7) 01/21/18 07:00 Baso # (Auto) 0.02 K/mm3 (0.0-2.0) 01/21/18 07:00 Sodium 141 mmol/L (132-148) 01/21/18 07:00 Potassium 4.8 mmol/L (3.6-5.0) 01/21/18 07:00 Chloride 106 mmol/L (98-107) 01/21/18 07:00 Carbon Dioxide 28 mmol/L (21-33) 01/21/18 07:00 Anion Gap 12 (10-20) 01/21/18 07:00 BUN 23 mg/dL (7-21) H 01/21/18 07:00 Creatinine 1.1 mg/dl (0.8-1.5) 01/21/18 07:00 Est GFR ( Amer) > 60 01/21/18 07:00 Est GFR (Non-Af Amer) > 60 01/21/18 07:00 Random Glucose 91 mg/dL (70-110) 01/21/18 07:00 Hemoglobin A1c 4.5 % (4.2-6.5) 01/12/18 06:20 Calcium 8.6 mg/dL (8.4-10.5) 01/21/18 07:00 Total Bilirubin 0.4 mg/dL (0.2-1.3) 01/21/18 07:00 AST 18 U/L (17-59) 01/21/18 07:00 ALT 23 U/L (7-56) 01/21/18 07:00 Alkaline Phosphatase 69 U/L (38-126) 01/21/18 07:00 Lactate Dehydrogenase 464 U/L (333-699) 01/11/18 12:00 Total Creatine Kinase 102 U/L (35-230) 01/11/18 12:00 Troponin I 0.04 ng/mL 01/12/18 00:40 NT-Pro-B Natriuret Pep 1230 pg/mL (0-450) H 01/11/18 12:00 Total Protein 6.3 g/dL (5.8-8.3) 01/21/18 07:00 Albumin 3.7 g/dL (3.0-4.8) 01/21/18 07:00 Globulin 2.6 gm/dL 01/21/18 07:00 Albumin/Globulin Ratio 1.4 (1.1-1.8) 01/21/18 07:00 Triglycerides 104 mg/dL (35-160) 01/12/18 06:20 Cholesterol 132 mg/dL (130-200) 01/12/18 06:20 LDL Cholesterol Direct 72 mg/dL (0-129) 01/12/18 06:20 HDL Cholesterol 35 mg/dL (29-60) 01/12/18 06:20 Vitamin B12 235 pg/mL (239-931) L 01/12/18 10:50 Folate 7.1 ng/mL 01/12/18 10:50 TSH 3rd Generation 1.69 mIU/mL (0.46-4.68) 01/12/18 06:20 Urine Color Yellow (YELLOW) 01/11/18 15:21 Urine Appearance Slight-cloudy (CLEAR) 01/11/18 15:21 Urine pH 6.5 (4.7-8.0) 01/11/18 15:21 Ur Specific Elida 1.015 (1.005-1.035) 01/11/18 15:21 Urine Protein 100 mg/dL (<30 mg/dL) H 01/11/18 15:21 Urine Glucose (UA) Negative mg/dL (NEGATIVE) 01/11/18 15:21 Urine Ketones Negative mg/dL (NEGATIVE) 01/11/18 15:21 Urine Blood Trace-lysed (NEGATIVE) H 01/11/18 15:21 Urine Nitrate Negative (NEGATIVE) 01/11/18 15:21 Urine Bilirubin Negative (NEGATIVE) 01/11/18 15:21 Urine Urobilinogen 0.2 E.U./dL (<1 E.U./dL) 01/11/18 15:21 Ur Leukocyte Esterase Negative Katarina/uL (NEGATIVE) 01/11/18 15:21 Urine RBC 1 - 3 /hpf (0-2) 01/11/18 15:21 Urine WBC 0 - 2 /hpf (0-6) 01/11/18 15:21 Ur Epithelial Cells 0 - 2 /hpf (0-5) 01/11/18 15:21 Urine Bacteria Trace (NEG) 01/11/18 15:21 Hyaline Casts 0 - 2 /hpf 01/11/18 15:21 Urine Opiates Screen Negative (NEGATIVE) 01/11/18 23:05 Urine Methadone Screen Negative (NEGATIVE) 01/11/18 23:05 Ur Barbiturates Screen Negative (NEGATIVE) 01/11/18 23:05 Ur Phencyclidine Scrn Negative (NEGATIVE) 01/11/18 23:05 Ur Amphetamines Screen Negative (NEGATIVE) 01/11/18 23:05 U Benzodiazepines Scrn Negative (NEGATIVE) 01/11/18 23:05 U Oth Cocaine Metabols Negative (NEGATIVE) 01/11/18 23:05 U Cannabinoids Screen Negative (NEGATIVE) 01/11/18 23:05 Alcohol, Quantitative < 10 mg/dL (0-10) 01/14/18 09:30 - Hospital Course Hospital Course: Mr. Arteaga is a 82-year-old male with unknown past medical history who was found in front of his apartment building confused and unable to walk. Patient was found to have paroxysmal SVT and was admitted to telemetry, and subsequently downgraded to the medical floor. Patient was also admitted for delirium with underlying dementia. He was admitted and was treated with ASA, Clonidine, Folate, B12, Multivitamins, Thiamine, Lopressor, and Seroquel. During the course of his hospital stay, he underwent EKG, chest xray, echocardiogram, and head CT. EKG showed SVT with a heart rate of 150, incomplete right RBBB. Chest xray showed no active disease, CT head showed no hydrocephalus, no intracranial hemorrhage. Echocardiogram showed aortic calcifications, no LV abnormalities with EF of 66%. Cardiology (Dr. Rodney and Dr. Fam) and psychiatry (Dr. Clements) were consulted in the management and treatment of this patient. Cardiology recommended continued telemetry monitoring, oral beta alicia therapy, and started clonidine for BP control. Psychiatry recommended one-to-one for patient's agitation and wandering behavior and also seroquel at bedtime. Patient instructed to start new medications as prescribed: aspirin 81mg, metoprolol 50mg, seroquel 12.5mg PO HS , folic acid, multivitamin, and vitamin B12. Patient was educated on the correct way to take medications and was instructed to follow up with: as400 developer (Dr. Rodney) within 7 days, neurologist (Dr. Scott) within 7 days. We were unable to schedule [facility] clinic for the patient due to insurance. Patient to follow up and to obtain refills from primary care doctor. Patient further informed to return to the ED for worsening of symptoms.Patient is now medically optimized for discharge. Discharge Exam - Head Exam Head Exam: ATRAUMATIC, NORMAL INSPECTION - Eye Exam Eye Exam: Normal appearance - ENT Exam ENT Exam: Mucous Membranes Moist - Respiratory Exam Respiratory Exam: Clear to PA & Lateral. absent: Rales, Rhonchi, Wheezes - Cardiovascular Exam Cardiovascular Exam: REGULAR RHYTHM, +S1, +S2. absent: Gallop, Rubs, Systolic Murmur - GI/Abdominal Exam GI & Abdominal Exam: Normal Bowel Sounds, Soft. absent: Tenderness - Extremities Exam Additional comments: no calf tenderness or pedal edema - Neurological Exam Neurological exam: Alert - Psychiatric Exam Psychiatric exam: Normal Affect, Normal Mood - Skin Skin Exam: Dry, Normal Color, Warm Discharge Plan - Discharge Medications Prescriptions: Aspirin 81 mg PO DAILY #30 tab.chew Cyanocobalamin [Vitamin B12 1000 mcg Tab] 1,000 mcg PO DAILY #30 tab Folic Acid 1 mg PO DAILY #30 tab Metoprolol Tartrate [Lopressor] 50 mg PO BID #60 tab Multivitamin Therapeutic Tab [Thera Tab] 1 tab PO DAILY #30 tab QUEtiapine [SEROquel] 25 mg PO HS #14 tab - Follow Up Plan Condition: FAIR Disposition: HOME/ ROUTINE Instructions: Altered Mental Status (DC), Paroxysmal Supraventricular Tachycardia (DC), Altered Mental Status (GEN) Additional Instructions: - Take medications as prescribed: Aspirin 81mg by mouth daily, Lopressor 50mg by mouth twice daily, Seroquel 12.5 mg by mouth once daily at bedtime, Folic acid 1mg by mouth daily, multivitamin once daily, Vitamin B-12 once daily. - Follow up with as400 developer, Dr. Rodney, within 7 days - Follow up with neurologist, Dr. Scott, within 7 days - Unable to schedule [facility] clinic for the patient due to insurance. Patient instructed to follow up and to obtain refills from primary care doctor - Return to ED if symptoms return Referrals: Killian Rodney MD [Staff Provider] - Gino Scott MD [Staff Provider] - Wisam Preston MD [Staff Provider] - <Eloisa Mckeon - Last Filed: 01/23/18 13:16> Provider - Provider Date of Admission: 01/14/18 13:54 Attending physician: Eloisa Mckeon MD Hospital Course - Lab Results Lab Results: Most Recent Lab Values WBC 7.0 10^3/ul (4.5-11.0) 01/21/18 07:00 RBC 3.61 10^6/uL (3.5-6.1) 01/21/18 07:00 Hgb 11.2 g/dL (14.0-18.0) L 01/21/18 07:00 Hct 34.2 % (42.0-52.0) L 01/21/18 07:00 MCV 94.7 fl (80.0-105.0) 01/21/18 07:00 MCH 31.0 pg (25.0-35.0) 01/21/18 07:00 MCHC 32.7 g/dl (31.0-37.0) 01/21/18 07:00 RDW 13.4 % (11.5-14.5) 01/21/18 07:00 Plt Count 273 10^3/uL (120.0-450.0) 01/21/18 07:00 MPV 9.1 fl (7.0-11.0) 01/21/18 07:00 Gran % 64.9 % (50.0-68.0) 01/21/18 07:00 Lymph % (Auto) 23.3 % (22.0-35.0) 01/21/18 07:00 [place] % (Auto) 9.2 % (1.0-6.0) H 01/21/18 07:00 Eos % (Auto) 2.3 % (1.5-5.0) 01/21/18 07:00 Baso % (Auto) 0.3 % (0.0-3.0) 01/21/18 07:00 Gran # 4.54 (1.4-6.5) 01/21/18 07:00 Lymph # (Auto) 1.6 (1.2-3.4) 01/21/18 07:00 [place] # (Auto) 0.6 (0.1-0.6) 01/21/18 07:00 Eos # (Auto) 0.2 (0.0-0.7) 01/21/18 07:00 Baso # (Auto) 0.02 K/mm3 (0.0-2.0) 01/21/18 07:00 Sodium 141 mmol/L (132-148) 01/21/18 07:00 Potassium 4.8 mmol/L (3.6-5.0) 01/21/18 07:00 Chloride 106 mmol/L (98-107) 01/21/18 07:00 Carbon Dioxide 28 mmol/L (21-33) 01/21/18 07:00 Anion Gap 12 (10-20) 01/21/18 07:00 BUN 23 mg/dL (7-21) H 01/21/18 07:00 Creatinine 1.1 mg/dl (0.8-1.5) 01/21/18 07:00 Est GFR ( Amer) > 60 01/21/18 07:00 Est GFR (Non-Af Amer) > 60 01/21/18 07:00 Random Glucose 91 mg/dL (70-110) 01/21/18 07:00 Hemoglobin A1c 4.5 % (4.2-6.5) 01/12/18 06:20 Calcium 8.6 mg/dL (8.4-10.5) 01/21/18 07:00 Total Bilirubin 0.4 mg/dL (0.2-1.3) 01/21/18 07:00 AST 18 U/L (17-59) 01/21/18 07:00 ALT 23 U/L (7-56) 01/21/18 07:00 Alkaline Phosphatase 69 U/L (38-126) 01/21/18 07:00 Lactate Dehydrogenase 464 U/L (333-699) 01/11/18 12:00 Total Creatine Kinase 102 U/L (35-230) 01/11/18 12:00 Troponin I 0.04 ng/mL 01/12/18 00:40 NT-Pro-B Natriuret Pep 1230 pg/mL (0-450) H 01/11/18 12:00 Total Protein 6.3 g/dL (5.8-8.3) 01/21/18 07:00 Albumin 3.7 g/dL (3.0-4.8) 01/21/18 07:00 Globulin 2.6 gm/dL 01/21/18 07:00 Albumin/Globulin Ratio 1.4 (1.1-1.8) 01/21/18 07:00 Triglycerides 104 mg/dL (35-160) 01/12/18 06:20 Cholesterol 132 mg/dL (130-200) 01/12/18 06:20 LDL Cholesterol Direct 72 mg/dL (0-129) 01/12/18 06:20 HDL Cholesterol 35 mg/dL (29-60) 01/12/18 06:20 Vitamin B12 235 pg/mL (239-931) L 01/12/18 10:50 Folate 7.1 ng/mL 01/12/18 10:50 TSH 3rd Generation 1.69 mIU/mL (0.46-4.68) 01/12/18 06:20 Urine Color Yellow (YELLOW) 01/11/18 15:21 Urine Appearance Slight-cloudy (CLEAR) 01/11/18 15:21 Urine pH 6.5 (4.7-8.0) 01/11/18 15:21 Ur Specific [place] 1.015 (1.005-1.035) 01/11/18 15:21 Urine Protein 100 mg/dL (<30 mg/dL) H 01/11/18 15:21 Urine Glucose (UA) Negative mg/dL (NEGATIVE) 01/11/18 15:21 Urine Ketones Negative mg/dL (NEGATIVE) 01/11/18 15:21 Urine Blood Trace-lysed (NEGATIVE) H 01/11/18 15:21 Urine Nitrate Negative (NEGATIVE) 01/11/18 15:21 Urine Bilirubin Negative (NEGATIVE) 01/11/18 15:21 Urine Urobilinogen 0.2 E.U./dL (<1 E.U./dL) 01/11/18 15:21 Ur Leukocyte Esterase Negative Katarina/uL (NEGATIVE) 01/11/18 15:21 Urine RBC 1 - 3 /hpf (0-2) 01/11/18 15:21 Urine WBC 0 - 2 /hpf (0-6) 01/11/18 15:21 Ur Epithelial Cells 0 - 2 /hpf (0-5) 01/11/18 15:21 Urine Bacteria Trace (NEG) 01/11/18 15:21 Hyaline Casts 0 - 2 /hpf 01/11/18 15:21 Urine Opiates Screen Negative (NEGATIVE) 01/11/18 23:05 Urine Methadone Screen Negative (NEGATIVE) 01/11/18 23:05 Ur Barbiturates Screen Negative (NEGATIVE) 01/11/18 23:05 Ur Phencyclidine Scrn Negative (NEGATIVE) 01/11/18 23:05 Ur Amphetamines Screen Negative (NEGATIVE) 01/11/18 23:05 U Benzodiazepines Scrn Negative (NEGATIVE) 01/11/18 23:05 U Oth Cocaine Metabols Negative (NEGATIVE) 01/11/18 23:05 U Cannabinoids Screen Negative (NEGATIVE) 01/11/18 23:05 Alcohol, Quantitative < 10 mg/dL (0-10) 01/14/18 09:30 Attending/Attestation - Attestation I have personally seen and examined this patient.: Yes I have fully participated in the care of the patient.: Yes I have reviewed all pertinent clinical information, including history, physical exam and plan: Yes Notes (Text): 01/23/18 13:13 Attending note; Patient seen and examined with resident. Patient is a 82 year old [place] male with unknown past medical history and no out-patient follow-up who was found in front of his apartment building, said to be confused and unable to walk. Patient had episodes of SVT during admission. currently in normal sinus rhythm. Currently on metoprolol. Cardiology evaluation appreciated. Cardiac enzymes 3 negative. Patient is alert and awake. Oriented to place. CT head is negative for acute infarct. Neurology evaluation appreciated. Possible dementia. 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 B12 deficiency; started on vitamin B12. History of alcohol abuse in the past; started on thiamine, multivitamin, folic acid. Psychiatric evaluation appreciated; started on Seroquel for mood control. Monitor closely. Visiting nurse services arranged. Patient will go to [facility] today. paper work completed for day care. Case discussed with patient's brother in law in detail. discharge home today with family with close outpatient follow-up. The diagnosis, follow-up plan discussed with family in detail. Patient will follow up with [facility] clinic upon discharge. 01/23/18 13:15
== END 2018-01-22 13:36 | disposition home health service (06) | DRG 309 ==
LOC: ED 11:35 → ERH 13:04 → 2RNO 16:01 → OBSVTOIN 01-14 13:54 → 3RNO 01-17 11:45
PROVIDERS: ADMIT Internal Medicine; ATTEND Internal Medicine
DX: I47.1 Supraventricular tachycardia (principal); F05 Delirium due to known physiological condition; F03.90 Unspecified dementia, unspecified severity, without behavioral disturbance, psychotic disturbance, mood disturbance, and anxiety; E53.8 Deficiency of other specified B group vitamins; I10 Essential (primary) hypertension; D64.9 Anemia, unspecified; F17.210 Nicotine dependence, cigarettes, uncomplicated; I45.10 Unspecified right bundle-branch block; I70.0 Atherosclerosis of aorta; Z79.82 Long term (current) use of aspirin; Z79.899 Other long term (current) drug therapy; Z82.49 Family history of ischemic heart disease and other diseases of the circulatory system